=== PATIENT | female | born 1945 | race Caucasian/White ===

== ENCOUNTER → 2023-08-02 07:47 | Outpatient (REF) | payer MEDICARE, BC, SELFPAY ==
[2023-08-02 08:55] LABS: Urine Albumin Negative (Neg - Trace); Urine Bilirubin Negative (Negative); Urine Character Clear (Clear); Urine Color Yellow; Urine Glucose Negative (Negative); Urine Ketone Negative (Negative); Urine Leukocyte Negative (Negative); Urine Nitrite Negative (Negative); Urine Occult Blood Negative (Negative); Urine Urobilinogen Negative (Neg - 1+)
[2023-08-02 09:41] LABS: ALT (SGPT) 33 U/L (0-35); AST (SGOT) 34 U/L (14-36); Alkaline Phosphatase 57 U/L (38-126); Blood Urea Nitrogen 12 mg/dl (7-17); Calcium 9.7 mg/dl (8.4-10.2); Carbon Dioxide 23 mmol/L (22-30); Chloride 89 mmol/L (98-107); Glucose 123 mg/dl (70-99); HDL Cholesterol 109 mg/dl; LDL Cholesterol, Calculated 18 mg/dl; Potassium 3.6 mmol/L (3.5-5.1); Sodium 124 mmol/L (135-145); Total Cholesterol 155 mg/dl (50-199); Triglyceride 143 mg/dl (10-149); Very Low Density Lipoprotein 28 mg/dl (0-30); eGFR > 60.00
[2023-08-02 10:00] LABS: TSH 3.15 uIU/ml (0.47-4.68)
== END ==
LOC: HWLAB 07:47
PROVIDERS: ATTENDING PHYSICIAN Nurse Practitioner
DX: E87.8 Other disorders of electrolyte and fluid balance, not elsewhere classified (principal); E78.2 Mixed hyperlipidemia; E03.9 Hypothyroidism, unspecified; R73.03 Prediabetes
CPT/HCPCS: 36415; 80053; 80061; 81003; 83036; 84443

== ENCOUNTER 2023-08-09 11:55 | Emergency (ER) | payer MEDICARE, BC, SELFPAY ==
[2023-08-09 12:10] VITALS: BP 191/111
[2023-08-09 13:31] LABS: Urine Albumin Negative (Neg - Trace); Urine Bilirubin Negative (Negative); Urine Character Clear (Clear); Urine Color Yellow; Urine Glucose Negative (Negative); Urine Ketone Negative (Negative); Urine Leukocyte Negative (Negative); Urine Nitrite Negative (Negative); Urine Occult Blood Negative (Negative); Urine Urobilinogen Negative (Neg - 1+)
[2023-08-09 14:44] VITALS: BP 198/84; BMI 33.7
[2023-08-09 14:45] VITALS: BP 198/84
[2023-08-09 15:00] VITALS: BP 177/76
[2023-08-09 15:01] LABS: % Basophils 0.8 % (0-2); % Eosinophils 0.5 % (0-6); % Immature Granulocytes 0.3 % (0-0.5); % Monocytes 7.2 % (1.7-9.3); % Neutrophils 65.2 % (42.2-75.2); Absolute Basophils 0.1 10^3/uL (0-0.2); Absolute Monocytes 0.5 10^3/uL (0.1-0.6); Absolute Neutrophils 4.9 10^3/uL (1.4-6.5); Hematocrit 34.5 % (37.0-47.0); Hemoglobin 12.2 g/dL (12.0-16.0); Mean Corp Hgb Conc. 35.4 g/dL (33.0-37.0); Mean Corpuscular Volume 87.8 fL (81.0-99.0); Mean Platelet Volume 9.4 fL (7.4-10.4); Nucleated Red Blood Cells % 0 %; Platelet Count 273 10^3/uL (130-400); Red Blood Cell Count 3.93 10^6/uL (4.20-5.40); Red Cell Dist. Width 14.5 % (11.5-14.5); White Blood Cell Count 7.5 10^3/uL (4.8-10.8)
--- NOTE | 2023-08-09 15:03 | ED.GENMED ---
History of Present Illness
General
Chief Complaint: Urinary Symptoms
Source: patient
Exam Limitations: none
Time Seen by Provider: 08/09/23 13:53
Nursing documentation reviewed up to this point in time: agreed with
Travel History
Have you had any contact with someone who has COVID-19?: No
Do you have any symptoms of coronavirus? Fever > 100 degrees, chills, cough, shortness of breath, sore throat, loss of taste or smell, muscle aches, or headache?: No
History of Present Illness
History of Present Illness:
78-year-old female with past medical history of CHRISTIAN hypertension hyperlipidemia, GERD, hypothyroidism presenting to the emergency department today with concerns of feeling 'off'. Had a UTI 2 weeks ago and had an episode where she had significant
trouble with memory was seen at [facility] had a neurologic evaluation and labs. She was told that she had a UTI and some electrolyte derangements. She had a CT scan of her head at the time which was normal. She was then sent home.
Currently she has a mild headache no urinary symptoms feels very confused but denies any focal neurologic deficits.
Past History
Past History
ED Past Medical History: GERD, HTN and Hypothyroidism; Negative CAD or Cancer
ED Past Surgical History: Negative Cardiac
Social History
Tobacco: Non-smoker
Alcohol: None
Drug: None
Personal:
Living: with family
Employment: Retired
Family History
Family History: Other
Review of Systems
Review of Systems
Allergies reviewed?: Yes
All Other Systems: ROS reviewed and negative except as documented in HPI and ROS
Phy Exam
Physical Exam
Physical Exam:
GENERAL: Alert , in no apparent distress
EYE: pupils equal and reactive
NECK: Supple, no significant adenopathy.
ENT: o/p clr, mmm.
CARDIAC: Regular rate and rhythm .
LUNGS: Clear breath sounds bilaterally, no acute respiratory distress, no wheezes/rales/rhonchi
ABDOMEN: Soft, without focal tenderness, no r/g, no cvat
NEUROLOGICAL: Alert and oriented, no focal neuro deficits 5-5 upper and lower extremity strength normal sensation were palpated bilaterally normal finger-nose and [id number] no pronator drift
SKIN: Warm and dry, skin intact.
MUSCULOSKELETAL: No edema, well perfused.
PSYCH: Normal and appropriate interaction.
Course
Orders/Labs/Results
Orders:
Orders
08/09/23 13:09
UA Reflex to Culture [Urinalysis Reflex To Culture] Urgent
Date Specimen was Collected: 08/09/23
Time Specimen was Collected: 12:10
08/09/23 14:19
EKG [Electrocardiogram (*1)] Urgent
Reason for Study: Fatigue / Weakness
CT Head W/o Iv Contrast Urgent
Comment:
Reason For Exam: ams
EKG- Treatment ONCE
08/09/23 14:51
CBC/With Diff [Complete Blood Count/With Diff] Urgent
CMP [Comprehensive Metabolic Panel] Urgent
Magnesium Urgent
TSH Reflex To Free T4 Urgent
08/09/23 16:26
0.9% Sodium Chloride 500 ml [Nss] 500 ml IV BOLUS
Potassium Chloride Powder [Klor-Con] 20 meq PO NOW STA
Abnormal Lab Results
08/09/23
14:51
RBC 3.93 L 10^6/uL
(4.20-5.40)
Hct 34.5 L %
(37.0-47.0)
Sodium 129 L mmol/L
(135-145)
Potassium 3.1 L mmol/L
(3.5-5.1)
Chloride 93 L mmol/L
(98-107)
Creatinine 0.5 L mg/dL
(0.6-1.0)
Glucose 103 H mg/dl
(70-99)
ALT 37 H U/L
(0-35)
08/09/23 14:51
08/09/23 14:51
Vital Signs
Initial and Last Documented VS:
Initial Vital Signs
Temp Pulse Resp Pulse Ox
98.2 F 81 16 96
08/09/23 12:08 08/09/23 12:08 08/09/23 12:08 08/09/23 12:08
Last Documented Vital Signs
Temp Pulse Resp BP Pulse Ox
98.2 F 75 18 177/76 98
08/09/23 12:08 08/09/23 15:30 08/09/23 15:30 08/09/23 15:00 08/09/23 15:30
MDM/Problems Addressed
MDM/Problems Addressed:
78-year-old female presenting to the emergency department feeling 'off over the past few days. Had similar symptoms a few weeks ago when she was diagnosed with a UTI and had electrolyte issues. She was treated at [facility]. Upon arrival
here patient in no obvious distress claims he feels 'off and has had poor memory over the past few days. She claims that she frequently feels confused today. She is fully alert and oriented able to answer all orientation questions and is able to
speak fluently with me. No focal neurologic deficits on examination urinalysis normal. Patient fully alert and oriented throughout stay fluid with her thinking and speech. No neurologic abnormalities on exam CT scan was negative labs did show
slightly low potassium and sodium which potentially could be causing some degree of symptoms patient was given slight supplementation here and advised for close outpatient follow-up otherwise stable for discharge blood pressure was elevated during
stay she was advised to have this closely monitor at home and given increased medications as
*Critical Care Note
Total Time (30-74mins, 75-104mins- exclusive of procedures): Not Applicable
ED Attending Note
-
Portions of this chart may have been created with voice recognition software.� Occasional wrong word or��sound alike� substitutions may have occurred due to the inherent limitations of voice recognition software.
Discharge Plan
Departure
Patient Disposition: Home (Routine Discharge)
Date of Disposition: 08/09/23
Time of Disposition: 17:12
Patient with high blood pressure during this ER visit?: Yes
Condition: Good
Covid-19: Not Applicable
Discharge Problem:
Acute hyponatremia, Hypokalemia, High blood pressure
Instructions: BLOOD PRESSURE
Prescriptions:
New
potassium chloride 20 mEq tablet extended release
20 meq PO DAILY 7 Days Qty: 7 0RF
No Action
Lakia-D 24 Hour Tablet
1 tab PO DAILY
atorvastatin 20 MG tablet
20 mg PO HS
levothyroxine 75 MCG tablet
100 mcg PO DAILY
Centrum Silver Women 1 EACH tablet
1 ea PO DAILY
Tumersaid 1 EACH tablet
1 ea PO DAILY
oxybutynin chloride 15 mg Tablet Extended Release 24hr
15 mg PO DAILY
omeprazole 40 mg Capsule,Delayed Release(Dr/Ec)
40 mg PO DAILY
vitamin B complex Tablet
1 tab PO WEEKLY
Patient Comments:
1000 units weekly
azelastine 137 mcg (0.1 %) Aerosol,[place]
2 spray INTRANASAL BID
Vitamin D2 25,000 unit Capsule
50,000 unit PO WEEKLY
escitalopram oxalate [Lexapro] 10 mg Tablet
10 mg PO HS
valsartan-hydrochlorothiazide 320-12.5 mg Tablet
1 tab PO DAILY
Referrals:
Cornelius Meadows MD [Active] - Call in 1-3 days for appt
Nelia Lind CRNP [Family Provider] -
Activity Restrictions/Additional Instructions:
You came to the emergency department today with multiple concerns. Here you are found to have a continued low sodium and potassium level. Please take supplementation at home and follow close with a primary care doctor. Return to the emergency
department for any worsening, new or concerning symptoms.
Interventions
Interventions:
*Risk Screen - Suicide Last Done: 08/09/23 12:06
*General Assessment Last Done: 08/09/23 12:06
*Neglect/Abuse Screening Last Done: 08/09/23 12:06
ED- Fall Risk Assessment Last Done: 08/09/23 15:44
*ED COVID-19 Vaccine History Last Done: 08/09/23 14:44
ED-Female Genitourinary Assessment Last Done: 08/09/23 15:44
[2023-08-09 15:18] LABS: ALT (SGPT) 37 U/L (0-35); AST (SGOT) 35 U/L (14-36); Albumin 4.6 g/dl (3.5-5.0); Alkaline Phosphatase 55 U/L (38-126); Blood Urea Nitrogen 12 mg/dl (7-17); Calcium 9.9 mg/dl (8.4-10.2); Carbon Dioxide 27 mmol/L (22-30); Chloride 93 mmol/L (98-107); Estimated Creatinine Clearance 70 ml/min; Glucose 103 mg/dl (70-99); Magnesium 1.6 mg/dl (1.6-2.3); Potassium 3.1 mmol/L (3.5-5.1); Sodium 129 mmol/L (135-145); Total Bilirubin 0.9 mg/dl (0.2-1.3); Total Protein 7.3 g/dl (6.3-8.2); eGFR > 60.00
[2023-08-09 15:46] LABS: TSH Reflex To Free T4 3.89 uIU/ml (0.47-4.68)
[2023-08-09] MEDS: KLOR-CON 20 MEQ PO (16:46)
[2023-08-09] MEDS: NSS 500 IV (16:47)
== END 2023-08-09 18:03 | disposition home or self-care (01) ==
LOC: EMR 11:55
PROVIDERS: Physician Assistant; Student in an Organized Health Care Education/Training Program; EMERGENCY PHYSICIAN Emergency Medicine; FAMILY PHYSICIAN Nurse Practitioner
DX: E87.1 Hypo-osmolality and hyponatremia (principal); E87.6 Hypokalemia; I10 Essential (primary) hypertension; E78.5 Hyperlipidemia, unspecified; K21.9 Gastro-esophageal reflux disease without esophagitis; E03.9 Hypothyroidism, unspecified
CPT/HCPCS: 99285; 70450; 80053; 81003; 83735; 84443; 85025; 93005

== ENCOUNTER 2023-08-11 14:47 | Emergency (ER) | payer MEDICARE, BC, SELFPAY ==
[2023-08-11] VITALS (8 sets, daily range): BP systolic 173–220; BP diastolic 74–117; BMI 33.1
[2023-08-11 15:22] LABS: % Basophils 0.7 % (0-2); % Immature Granulocytes 0.3 % (0-0.5); % Lymphocytes 16.4 % (20.5-51.1); % Monocytes 6.7 % (1.7-9.3); % Neutrophils 73.9 % (42.2-75.2); Absolute Basophils 0.1 10^3/uL (0-0.2); Absolute Eosinophils 0.2 10^3/uL (0-0.7); Absolute Lymphocytes 1.6 10^3/uL (1.2-3.4); Absolute Monocytes 0.6 10^3/uL (0.1-0.6); Absolute Neutrophils 7.1 10^3/uL (1.4-6.5); Hematocrit 37.1 % (37.0-47.0); Hemoglobin 13.5 g/dL (12.0-16.0); Mean Corp Hgb Conc. 36.4 g/dL (33.0-37.0); Mean Corpuscular Hgb 31.5 pg (27.0-31.0); Mean Corpuscular Volume 86.7 fL (81.0-99.0); Mean Platelet Volume 9.5 fL (7.4-10.4); Nucleated Red Blood Cells % 0 %; Platelet Count 298 10^3/uL (130-400); Red Blood Cell Count 4.28 10^6/uL (4.20-5.40); Red Cell Dist. Width 14.2 % (11.5-14.5); White Blood Cell Count 9.6 10^3/uL (4.8-10.8)
[2023-08-11 15:41] LABS: ALT (SGPT) 38 U/L (0-35); AST (SGOT) 36 U/L (14-36); Albumin 4.8 g/dl (3.5-5.0); Alkaline Phosphatase 66 U/L (38-126); Blood Urea Nitrogen 11 mg/dl (7-17); Calcium 10.2 mg/dl (8.4-10.2); Carbon Dioxide 22 mmol/L (22-30); Chloride 97 mmol/L (98-107); Glucose 117 mg/dl (70-99); Potassium 3.4 mmol/L (3.5-5.1); Sodium 129 mmol/L (135-145); Total Protein 7.8 g/dl (6.3-8.2); eGFR > 60.00
[2023-08-11 15:46] LABS: Troponin I < 0.012 ng/ml
--- NOTE | 2023-08-11 19:05 | ED.GENMED ---
History of Present Illness
General
Chief Complaint: Blood Pressure Problem
Source: patient
Exam Limitations: none
Time Seen by Provider: 08/11/23 18:35
Travel History
Have you had any contact with someone who has COVID-19?: No
Do you have any symptoms of coronavirus? Fever > 100 degrees, chills, cough, shortness of breath, sore throat, loss of taste or smell, muscle aches, or headache?: No
History of Present Illness
History of Present Illness:
This is a 78 year old female that comes in with c/o feeling like things moving. States that this morning she got up and took her medication. States that she got dressed and she then felt like the room was moving but she was not dizzy. States that
she would look for thinks and couldn't find them. States that she was watching TV and she felt like the TV was moving forward to her and then back again. States that when she got ready to come here it went away. States that she was here 2-3 days ago
with the exact same thing. States that she had CT of her head at that time which was normal. States that she did not take her evening dose of her Hydralazine and she was to start Valsartan but she has not take this either. States that she does have
a headache and had some diarrhea today. Denies any fever, chills, chest pain, SOB, abd pain, nausea, vomiting, dizziness, urinary burning.
Past History
Past History
ED Past Medical History: GERD, HTN, Hypercholesterolemia, Hypothyroidism and Other (Migraines, Sleep apnea uses CPAP); Negative CAD or Cancer
ED Past Surgical History: Gynecological (Tubal, ) and Orthopedic (FInger resection, Carpal tunnel); Negative Cardiac
Social History
Tobacco: Non-smoker
Alcohol: None
Drug: None
Personal:
Living: with family
Employment: Retired
Family History
Family History: Other
Review of Systems
Review of Systems
All Other Systems: ROS reviewed and negative except as documented in HPI and ROS
Constitutional: Reports no symptoms; Denies fever or chills
EENT: Reports no symptoms
Respiratory: Reports no symptoms; Denies cough or trouble breathing
Cardiac: Reports no symptoms; Denies chest pain
ABD/GI: Reports diarrhea; Denies abdominal pain, nausea or vomiting
: Reports no symptoms; Denies dysuria, frequency or urgency
Musculoskeletal: Reports no symptoms
Skin: Reports no symptoms
Neurological: Reports headache; Denies dizzy
Psychiatric: Reports no symptoms
Phy Exam
General Physical Exam
General Presentation: well appearing and no apparent distress
General age: appears stated age
General Skin: warm and dry
General Habitus: elderly
General Mental: alert
General Hydration: dry mucous membranes
ENT Exam
ENT Exam: TM's normal, pharynx normal and neck supple
Eye Exam
Eye Exam: EOMI
Cardiovascular Exam
Cardiovascular Exam: regular rate/rhythm, no edema, no murmur and normal peripheral pulses
Pulmonary Exam
Pulmonary Exam: lungs clear, no respiratory distress, no rales, chest non tender, no crackles, no rhonchi, no wheezing and no cough
Gastrointestinal Exam
Gastrointestinal Exam: normal bowel sounds, non tender, soft, no organomegaly, no pulsatile mass and non distended
Musculoskeletal Exam
Musculoskeletal Exam: full ROM and no edema
Skin Exam
Skin Exam: normal color, warm/dry, no rash and no petechia
Psychiatric Exam
Psychiatric Exam: normal mood/affect
Course
Orders/Labs/Results
Orders:
Orders
08/11/23 15:05
Electrocardiogram (*1) Urgent
Reason for Study: Chest Pain
EKG- Treatment ONCE
08/11/23 15:15
Complete Blood Count/With Diff Urgent
Comprehensive Metabolic Panel Urgent
Troponin I Urgent
08/11/23 19:03
HydrALAZINE [Apresoline] 5 mg IV NOW STA
08/11/23 19:08
0.9% Sodium Chloride 500 ml [Nss] 500 ml IV BOLUS
Potassium Chloride Powder [Klor-Con] 20 meq PO NOW STA
08/11/23 19:11
Acetaminophen [Tylenol] 1,000 mg PO NOW STA
08/11/23 19:27
Urinalysis Reflex To Culture Urgent
Date Specimen was Collected: 08/11/23
Time Specimen was Collected: 19:11
Abnormal Lab Results
08/11/23 08/11/23
15:15 19:27
MCH 31.5 H pg
(27.0-31.0)
Absolute Neuts (auto) 7.1 H 10^3/uL
(1.4-6.5)
Lymphocytes % 16.4 L %
(20.5-51.1)
Sodium 129 L mmol/L
(135-145)
Potassium 3.4 L mmol/L
(3.5-5.1)
Chloride 97 L mmol/L
(98-107)
Glucose 117 H mg/dl
(70-99)
ALT 38 H U/L
(0-35)
Urine Ketones Trace A
(Negative)
08/11/23 15:15
08/11/23 15:15
Sodium slightly low. Potassium very slightly low. Chloride very slightly low. Glucose nonfasting. ALT slightly elevated. Troponin <0.012
Urine negative for infection.
Vital Signs
Initial and Last Documented VS:
Initial Vital Signs
Temp Pulse Resp Pulse Ox
97.6 F 92 16 98
08/11/23 15:01 08/11/23 15:01 08/11/23 15:01 08/11/23 15:01
Last Documented Vital Signs
Temp Pulse Resp BP Pulse Ox
97.6 F 74 18 191/88 98
08/11/23 15:01 08/11/23 19:24 08/11/23 18:54 08/11/23 19:24 08/11/23 18:54
MDM/Problems Addressed
Differential Diagnosis Includes:
Hypertension, Dementia, dehydration,
MDM/Problems Addressed:
This is a 78 year old female that comes in with c/o not feeling dizzy but like things are moving. States that she was here 2 days ago with the same thing and had a CT scan. States that she did not take her evening medication and she did not start
the Valsartan as prescribed.
Will check labs, Urine, give IV fluids and given her Hydralazine 5mg to help with hypertension.
Back into see patient. Patient states that she feels fine. BP at this time is 175/74. Explained to patient that she need to take the Valsartan as prescribed along with her other medications as directed. This will help keep her BP down and may stop
this non-dizzy feeling. Patient has an appointment with the PCP on Wednesday next week. Patient to return with any concerns.
Chronic conditions affecting care: HTN
Acute Exacerbation and/or Progression of Chronic Illness: HTN
*Pulse Oximetry
Patient hypoxic: no
*EKG
Interpreted by ED Provider?: Yes
Heart Rate: 81
Rate: normal
Rhythm: sinus
[place]: normal axis
Interval: normal interval
QRS Pattern: normal QRS
Ischemia: no ischemia
*Ultrasonographer Interpretation
Rate: normal
Heart Rate: 78
Rhythm: sinus
*Critical Care Note
Total Time (30-74mins, 75-104mins- exclusive of procedures): Not Applicable
ED Attending Note
-
Portions of this chart may have been created with voice recognition software.� Occasional wrong word or��sound alike� substitutions may have occurred due to the inherent limitations of voice recognition software.
Discharge Plan
Departure
Patient Disposition: Home (Routine Discharge)
Date of Disposition: 08/11/23
Time of Disposition: 19:56
Patient with high blood pressure during this ER visit?: Yes
Condition: Good
Covid-19: Not Applicable
Discharge Problem:
Hypertension
Instructions: High Blood Pressure (DC), BLOOD PRESSURE
Prescriptions:
No Action
Lakia-D 24 Hour Tablet
1 tab PO DAILY
atorvastatin 20 MG tablet
20 mg PO HS
levothyroxine 75 MCG tablet
100 mcg PO DAILY
Centrum Silver Women 1 EACH tablet
1 ea PO DAILY
Tumersaid 1 EACH tablet
1 ea PO DAILY
oxybutynin chloride 15 mg Tablet Extended Release 24hr
15 mg PO DAILY
omeprazole 40 mg Capsule,Delayed Release(Dr/Ec)
40 mg PO DAILY
vitamin B complex Tablet
1 tab PO WEEKLY
Patient Comments:
1000 units weekly
azelastine 137 mcg (0.1 %) Aerosol,[place]
2 spray INTRANASAL BID
Vitamin D2 25,000 unit Capsule
50,000 unit PO WEEKLY
escitalopram oxalate [Lexapro] 10 mg Tablet
10 mg PO HS
valsartan-hydrochlorothiazide 320-12.5 mg Tablet
1 tab PO DAILY
potassium chloride 20 mEq tablet extended release
20 meq PO DAILY 7 Days Qty: 7 0RF
Referrals:
Nelia Lind CRNP [Family Provider] - 08/18/23
Activity Restrictions/Additional Instructions:
As discussed, your blood work shows that our sodium is a little low. Please limit your water intake and no more then 6-8oz glasses daily. Your BP is elevated and you need to take your Valsartan as prescribed along with your other medications as
directed. Follow up with the family doctor as scheduled. IF YOU HAVE ANY OTHER CONCERNS PLEASE RETURN TO THE EMERGENCY ROOM.
Interventions
Interventions:
*Risk Screen - Suicide Last Done: 08/11/23 18:41
*General Assessment Last Done: 08/11/23 18:41
*Neglect/Abuse Screening Last Done: 08/11/23 18:41
*ED COVID-19 Vaccine History Last Done: 08/11/23 18:41
ED- Cardiac Assessment Last Done: 08/11/23 18:49
ED- Neurological Assessment Last Done: 08/11/23 18:49
ED- Pulmonary Assessment Last Done: 08/11/23 18:49
[2023-08-11] MEDS: NSS 500 IV (19:23)
[2023-08-11] MEDS: APRESOLINE 5 MG IV (19:24)
[2023-08-11] MEDS: TYLENOL 1000 MG PO (19:24)
[2023-08-11] MEDS: KLOR-CON 20 MEQ PO (19:25)
[2023-08-11 19:38] LABS: Urine Albumin Negative (Neg - Trace); Urine Bilirubin Negative (Negative); Urine Character Clear (Clear); Urine Color Yellow; Urine Glucose Negative (Negative); Urine Ketone Trace (Negative); Urine Leukocyte Negative (Negative); Urine Nitrite Negative (Negative); Urine Occult Blood Negative (Negative); Urine Specific Gravity 1.005 (<1.030); Urine Urobilinogen Negative (Neg - 1+)
== END 2023-08-11 20:25 | disposition home or self-care (01) ==
LOC: EMR 14:47
PROVIDERS: Clinical Nurse Specialist Family Health; Emergency Medicine; EMERGENCY PHYSICIAN Student in an Organized Health Care Education/Training Program; FAMILY PHYSICIAN Nurse Practitioner
DX: I10 Essential (primary) hypertension (principal)
CPT/HCPCS: 99284; 96374; 96361; 80053; 81003; 84484; 85025; 93005

== ENCOUNTER → 2023-08-17 10:16 | Outpatient (REF) | payer MEDICARE, BC, SELFPAY ==
[2023-08-17 12:15] LABS: Sodium 133 mmol/L (135-145)
[2023-08-17 12:24] LABS: Potassium 3.6 mmol/L (3.5-5.1)
== END ==
LOC: HWLAB 10:16
PROVIDERS: ATTENDING PHYSICIAN Nurse Practitioner
DX: E87.1 Hypo-osmolality and hyponatremia (principal); E87.6 Hypokalemia
CPT/HCPCS: 36415; 84132; 84295

== ENCOUNTER 2023-08-19 17:08 | Inpatient (IN) | payer MEDICARE, BC, SELFPAY ==
[2023-08-19] VITALS (7 sets, daily range): BP systolic 150–202; BP diastolic 79–100; BMI 32.3; BMI 30.9
[2023-08-19 14:46] LABS: % Basophils 0.4 % (0-2); % Eosinophils 3.7 % (0-6); % Immature Granulocytes 0.5 % (0-0.5); % Lymphocytes 8.7 % (20.5-51.1); % Monocytes 6.6 % (1.7-9.3); % Neutrophils 80.1 % (42.2-75.2); Absolute Eosinophils 0.3 10^3/uL (0-0.7); Absolute Immature Granulocytes 0.1 10^3/uL (0-0.05); Absolute Lymphocytes 0.8 10^3/uL (1.2-3.4); Absolute Monocytes 0.6 10^3/uL (0.1-0.6); Absolute Neutrophils 7.4 10^3/uL (1.4-6.5); Hematocrit 34.1 % (37.0-47.0); Hemoglobin 12.4 g/dL (12.0-16.0); Mean Corp Hgb Conc. 36.4 g/dL (33.0-37.0); Mean Corpuscular Hgb 31.2 pg (27.0-31.0); Mean Corpuscular Volume 85.9 fL (81.0-99.0); Mean Platelet Volume 9.8 fL (7.4-10.4); Nucleated Red Blood Cells % 0 %; Platelet Count 297 10^3/uL (130-400); Red Blood Cell Count 3.97 10^6/uL (4.20-5.40); Red Cell Dist. Width 14.4 % (11.5-14.5); White Blood Cell Count 9.2 10^3/uL (4.8-10.8)
[2023-08-19 14:51] LABS: Urine Albumin Negative (Neg - Trace); Urine Bilirubin Negative (Negative); Urine Character Clear (Clear); Urine Color Yellow; Urine Glucose Negative (Negative); Urine Ketone 1+ (Negative); Urine Leukocyte Negative (Negative); Urine Nitrite Negative (Negative); Urine Occult Blood Negative (Negative); Urine Urobilinogen Negative (Neg - 1+)
[2023-08-19 14:58] LABS: ALT (SGPT) 183 U/L (0-35); AST (SGOT) 91 U/L (14-36); Albumin 4.5 g/dl (3.5-5.0); Alkaline Phosphatase 201 U/L (38-126); Blood Urea Nitrogen 11 mg/dl (7-17); Calcium 9.7 mg/dl (8.4-10.2); Carbon Dioxide 20 mmol/L (22-30); Chloride 97 mmol/L (98-107); Estimated Creatinine Clearance 68 ml/min; Glucose 108 mg/dl (70-99); Potassium 3.8 mmol/L (3.5-5.1); Sodium 126 mmol/L (135-145); Total Bilirubin 1.8 mg/dl (0.2-1.3); Total Protein 7.6 g/dl (6.3-8.2); eGFR > 60.00
--- NOTE | 2023-08-19 15:57 | ED.GENMED ---
History of Present Illness
General
Chief Complaint: Change in Mental Status
Source: patient and spouse
Time Seen by Provider: 08/19/23 15:19
Nursing documentation reviewed up to this point in time: agreed with
Travel History
Have you had any contact with someone who has COVID-19?: No
Do you have any symptoms of coronavirus? Fever > 100 degrees, chills, cough, shortness of breath, sore throat, loss of taste or smell, muscle aches, or headache?: No
History of Present Illness
History of Present Illness:
Patient is a 78-year-old female who presents to the ER for evaluation. at bedside reports patient has been very confused. This morning she told him that she wanted to go to the hospital however she was not making sense. reports
this is not new. He reports she is very forgetful cannot remember things and has a very confused conversation at times. She was hospitalized as documented in [place] several weeks ago for similar symptoms and reports had electrolyte
issues and UTI at that time
She was seen here in the ER August 10 for hypertension and August 08 for 'feeling off.' On visit August 08 patient was found to have hyponatremia and hypokalemia.
Patient is awake alert she does feel that she is aware that she is confused at times. She has no physical complaints.
Past History
Past History
ED Past Medical History: GERD, HTN, Hypercholesterolemia, Hypothyroidism and Other (Migraines, Sleep apnea uses CPAP); Negative CAD or Cancer
ED Past Surgical History: Gynecological (Tubal, ) and Orthopedic (FInger resection, Carpal tunnel); Negative Cardiac
Social History
Tobacco: Non-smoker
Alcohol: None
Drug: None
Personal:
Living: with family
Employment: Retired
Family History
Family History: Other
Review of Systems
Review of Systems
Allergies reviewed?: Yes
All Other Systems: ROS reviewed and negative except as documented in HPI and ROS
Constitutional: Denies fever, fatigue or chills
EENT: Reports no symptoms
Respiratory: Reports no symptoms
Cardiac: Reports no symptoms
ABD/GI: Reports no symptoms
: Reports no symptoms
Musculoskeletal: Reports no symptoms
Skin: Reports no symptoms
Neurological: Reports other (intermittently confused )
Phy Exam
General Physical Exam
General Presentation: no apparent distress
General age: appears stated age
General Skin: warm and dry
General Habitus: normal
General Mental: alert
General Hydration: appears well hydrated
Cardiovascular Exam
Cardiovascular Exam: regular rate/rhythm, no murmur and normal peripheral pulses
Pulmonary Exam
Pulmonary Exam: lungs clear and no respiratory distress
Neurological Exam
Neurological Exam: alert and oriented x3
Musculoskeletal Exam
Musculoskeletal Exam: full ROM
Skin Exam
Skin Exam: normal color and warm/dry
Psychiatric Exam
Psychiatric Exam: normal mood/affect
Course
Orders/Labs/Results
Orders:
Orders
08/19/23 14:31
Complete Blood Count/With Diff Urgent
Comprehensive Metabolic Panel Urgent
Urinalysis Reflex To Culture Urgent
Date Specimen was Collected: 08/19/23
Time Specimen was Collected: 14:18
Abnormal Lab Results
08/19/23
14:31
RBC 3.97 L 10^6/uL
(4.20-5.40)
Hct 34.1 L %
(37.0-47.0)
MCH 31.2 H pg
(27.0-31.0)
Abs Immat Gran (auto) 0.1 H 10^3/uL
(0-0.05)
Absolute Neuts (auto) 7.4 H 10^3/uL
(1.4-6.5)
Absolute Lymphs (auto) 0.8 L 10^3/uL
(1.2-3.4)
Neutrophils % 80.1 H %
(42.2-75.2)
Lymphocytes % 8.7 L %
(20.5-51.1)
Sodium 126 L mmol/L
(135-145)
Chloride 97 L mmol/L
(98-107)
Carbon Dioxide 20 L mmol/L
(22-30)
Creatinine 0.5 L mg/dL
(0.6-1.0)
Glucose 108 H mg/dl
(70-99)
Total Bilirubin 1.8 H mg/dl
(0.2-1.3)
AST 91 H U/L
(14-36)
ALT 183 H U/L
(0-35)
Alkaline Phosphatase 201 H U/L
(38-126)
Urine Ketones 1+ A
(Negative)
08/19/23 14:31
08/19/23 14:31
Vital Signs
Initial and Last Documented VS:
Initial Vital Signs
Temp Pulse Resp BP Pulse Ox
98.1 F 85 16 190/100 98
08/19/23 14:14 08/19/23 14:14 08/19/23 14:14 08/19/23 14:14 08/19/23 14:14
Last Documented Vital Signs
Temp Pulse Resp BP Pulse Ox
98.1 F 78 16 202/97 98
08/19/23 14:14 08/19/23 16:03 08/19/23 14:14 08/19/23 16:00 08/19/23 15:54
MDM/Problems Addressed
Differential Diagnosis Includes:
Not limited to electrolyte abnormality, infection, anemia, dementia, UTI
MDM/Problems Addressed:
Patient is a 78-year-old that was brought to the ER for evaluation of intermittent confusion. Has reports off-and-on for the past several weeks patient has been confused. She was hospice on [facility] for confusion and was also seen here in
the ER. She presents awake alert no acute distress reports patient is intermittently confused and she tells me that she is aware of feeling confused and feeling off.
No recent illness fever chills she is afebrile with a normal white count stable hemoglobin. Patient was found again to be hyponatremic here in the ER with a sodium of 126. Patient has had previous low sodiums in the past. Patient now also has
minimally elevated LFTs which are new. abd soft non tender . Negative urinalysis. CAT scan was not repeated as patient just had a CAT scan 3/ for same s/s.
Will require admission for further workup of intermittent confusion, treatment of hyponatremia and further eval of elevated lfts .
Chronic conditions affecting care:
Hypertension
*Critical Care Note
Total Time (30-74mins, 75-104mins- exclusive of procedures): Not Applicable
ED Attending Note
-
Portions of this chart may have been created with voice recognition software.� Occasional wrong word or��sound alike� substitutions may have occurred due to the inherent limitations of voice recognition software.
Discharge Plan
Departure
Patient Disposition: Admit
Date of Disposition: 08/19/23
Time of Disposition: 16:17
Admit to: Telemetry
Admit to doctor: hospitalist
Presentation/result/management discussed w/ accepting MD/DO: Hospitalist
Patient with high blood pressure during this ER visit?: Yes
Condition: Fair
Covid-19: Not Applicable
Discharge Problem:
Altered mental status, Acute hyponatremia, Elevated LFTs
Prescriptions:
No Action
Lakia-D 24 Hour Tablet
1 tab PO DAILY
atorvastatin 20 MG tablet
20 mg PO HS
levothyroxine 75 MCG tablet
100 mcg PO DAILY
Centrum Silver Women 1 EACH tablet
1 ea PO DAILY
Tumersaid 1 EACH tablet
1 ea PO DAILY
oxybutynin chloride 15 mg Tablet Extended Release 24hr
15 mg PO DAILY
omeprazole 40 mg Capsule,Delayed Release(Dr/Ec)
40 mg PO DAILY
vitamin B complex Tablet
1 tab PO WEEKLY
Patient Comments:
1000 units weekly
azelastine 137 mcg (0.1 %) Aerosol,[place]
2 spray INTRANASAL BID
Vitamin D2 25,000 unit Capsule
50,000 unit PO WEEKLY
escitalopram oxalate [Lexapro] 10 mg Tablet
10 mg PO HS
valsartan-hydrochlorothiazide 320-12.5 mg Tablet
1 tab PO DAILY
potassium chloride 20 mEq tablet extended release
20 meq PO DAILY 7 Days Qty: 7 0RF
Referrals:
Rocío Guevara, [Family Provider] -
Interventions
Interventions:
*Risk Screen - Suicide Last Done: 08/19/23 16:07
*General Assessment Last Done: 08/19/23 14:55
*Neglect/Abuse Screening Last Done: 08/19/23 16:07
ED- Fall Risk Assessment Last Done: 08/19/23 15:54
*ED COVID-19 Vaccine History Last Done: 08/19/23 14:14
ED- Pulmonary Assessment Last Done: 08/19/23 15:54
ED- Neurological Assessment Last Done: 08/19/23 15:54
ED- Cardiac Assessment Last Done: 08/19/23 15:54
ED Swallowing Screen Last Done: 08/19/23 15:54
--- NOTE | 2023-08-19 16:48 | HPS.HSE ---
Family Physician
-
Family Physician: Rocío Guevara
Chief Complaint
-
confusion, intermittent
History of Present Illness
78 yo F with PMHx of hypothyroidism, HTN, HLD, anxiety came with 2 weeks of intermittent confusion and malaise. No other symptoms noted. Patient is AAOx3 and well aware about surroundings, maintaining good conversation that does not raising
suspicion for dementia. No meningeal signs, BP poorly controlled. CT head done on August 08 (when patient came with the similar symptoms) is unremarkable for acute disease
Medical History
Past Medical History
Past Medical History: Reports Other
Additional Past Medical History:
See HPI
Past Surgical History: Reports None
Social History
Tobacco: Non-smoker
Alcohol: None
Drug: None
Family History
Family History: Not pertinent
Allergies / Home Medications
Allergies reflects when Allergies were last updated in [facility].
Home Medications with original date entered in [facility]
Allergy/Medication List:
Allergies
Allergy/AdvReac Type Severity Reaction Status Date / Time
codeine [Codeine] Allergy Nausea Verified 08/19/23 14:17
Penicillins Allergy Hives Verified 08/19/23 14:17
Home Medications
cetirizine 10 mg tablet (Zyrtec) 10 mg PO DAILY 01/07/09
atorvastatin 20 mg tablet 20 mg PO DAILY 03/11/17
itsongmj-dmfg-lmry 8 mg-folic 400 mcg-K 50 mcg-lutein 300 mcg tablet (Centrum Silver Women) 1 ea PO DAILY 03/11/17
omeprazole 40 mg capsule,delayed release 40 mg PO DAILY 12/28/21
oxybutynin chloride 15 mg tablet,extended release 24 hr 15 mg PO DAILY 12/28/21
potassium chloride 20 mEq tablet,extended release 20 meq PO DAILY 7 days #7 tabs 08/09/23
cholecalciferol (vitamin D3) 25 mcg (1,000 unit) tablet (Vitamin D3) 50 mcg PO DAILY 08/19/23
coenzyme Q10 300 mg capsule (Co Q-10) 300 mg PO DAILY 08/19/23
escitalopram oxalate 5 mg tablet 5 mg PO DAILY 08/19/23
hydralazine 25 mg tablet 25 mg PO BID 08/19/23
levothyroxine 88 mcg tablet 88 mcg PO DAILY 08/19/23
turmeric root extract 500 mg tablet 1,000 mg PO DAILY 08/19/23
valsartan 320 mg tablet 320 mg PO HS 08/19/23
Review of Systems
-
A 12 point ROS was completed and negative except as noted: Yes
Constitutional: Reports See HPI
Physical Exam
Vital Signs
Vital Signs
Temp Pulse Resp BP Pulse Ox
98.1 F 78 16 202/97 98
08/19/23 14:14 08/19/23 16:03 08/19/23 14:14 08/19/23 16:00 08/19/23 15:54
Physical Exam
General: Well Developed, Well Nourished and No Apparent Distress
HEENT: NormoCephalic, Anicteric and Moist mucous membranes
Respiratory: Clear; No Rales or Rhonchi
Cardiac: S1/S2 and Regular Rhythm
GI: Soft, Non Tender and Non Distended
Genito-urinary: Clear Urine
Musculoskeletal: No Clubbing, No Cyanosis and No Edema
Skin: Warm
Neuro: Awake, Alert, Oriented and AO x 3
Hematologic/Lymphatic: No Lymphadenopathy
Psych: Calm
Laboratory Results
-
08/19/23 14:31
08/19/23 14:31
Laboratory Results
Total Bilirubin 1.8 mg/dl (0.2-1.3) H 08/19/23 14:31
AST 91 U/L (14-36) H 08/19/23 14:31
ALT 183 U/L (0-35) H 08/19/23 14:31
Alkaline Phosphatase 201 U/L (38-126) H 08/19/23 14:31
Impression/Plan
-
A/P:
#Intermittent confusion, unclear cause, cannot r/o PRES with malaise
#Poorly controlled essential HTN
MRI brain (has Hx of small meningioma)
check Lyme titer
Neurology consult
cont BP meds, use IV hydralazoine PRN, avouid BP drop by more then 25% over the next 24h
Check AM cortisol
UA pending
check XR chest
Bcx
Telemetry for at least 24h
Check B12, Ammonia
#Hyponatremia
recently started Lexapro (1 week) - hold lexapro
Urine osm
Limit fluid intake to 1500ml
Nephro consult
#Transaminitis with elevatd bili
No RUQ tenderness
check hepatitis profile
hold statin
US RUQ ordered
follow LFT
avoid tylenol
#Anxiety
#HLD
#Hypothyroidism
Check TSH
hold statin
cont Synthroid
DVT ppx lovenox
Full code
This admission required high level of medical decision making due to unclear symptoms and complicated review of PMHx
--- NOTE | 2023-08-19 20:05 | PTCARENOTE ---
Pt transferred from ED. Pt AAOX3, able to make needs known, VSS. Pt oriented to unit, call pratt within reach.
[2023-08-19] MEDS: APRESOLINE 25 MG PO (20:28)
[2023-08-19] MEDS: LOVENOX 40 MG SC (20:28)
[2023-08-19] MEDS: DIOVAN 320 MG PO (20:29)
[2023-08-20] VITALS (7 sets, daily range): BP systolic 141–169; BP diastolic 80–112; PULSE 83; O2SAT 97
[2023-08-20 02:25] LABS: Hepatitis B Surface Antigen Negative (Negative)
[2023-08-20 02:43] LABS: Hepatitis B Core Ab, Total Negative (Negative); Hepatitis B Surface Antibody Positive; Hepatitis C Antibody Negative (Negative)
[2023-08-20 04:07] LABS: Hepatitis A Antibody, Total Negative (Negative)
[2023-08-20] MEDS: SYNTHROID 88 MCG PO (05:33)
[2023-08-20 05:42] LABS: % Basophils 0.7 % (0-2); % Eosinophils 5.7 % (0-6); % Immature Granulocytes 0.6 % (0-0.5); % Lymphocytes 9.8 % (20.5-51.1); % Monocytes 6.4 % (1.7-9.3); % Neutrophils 76.8 % (42.2-75.2); Absolute Basophils 0.1 10^3/uL (0-0.2); Absolute Eosinophils 0.5 10^3/uL (0-0.7); Absolute Immature Granulocytes 0.1 10^3/uL (0-0.05); Absolute Lymphocytes 0.8 10^3/uL (1.2-3.4); Absolute Monocytes 0.5 10^3/uL (0.1-0.6); Absolute Neutrophils 6.5 10^3/uL (1.4-6.5); Hematocrit 32.6 % (37.0-47.0); Hemoglobin 11.8 g/dL (12.0-16.0); Mean Corp Hgb Conc. 36.2 g/dL (33.0-37.0); Mean Corpuscular Hgb 31.2 pg (27.0-31.0); Mean Corpuscular Volume 86.2 fL (81.0-99.0); Nucleated Red Blood Cells % 0 %; Platelet Count 233 10^3/uL (130-400); Red Blood Cell Count 3.78 10^6/uL (4.20-5.40); Red Cell Dist. Width 14.3 % (11.5-14.5); White Blood Cell Count 8.5 10^3/uL (4.8-10.8)
[2023-08-20 06:07] LABS: Ammonia 13 umol/L (9-30)
[2023-08-20 06:18] LABS: ALT (SGPT) 148 U/L (0-35); AST (SGOT) 65 U/L (14-36); Albumin 3.8 g/dl (3.5-5.0); Alkaline Phosphatase 163 U/L (38-126); Direct Bilirubin 0.2 mg/dl (0.0-0.4); Total Bilirubin 1.1 mg/dl (0.2-1.3); Total Protein 6.5 g/dl (6.3-8.2)
[2023-08-20 06:39] LABS: TSH 4.45 uIU/ml (0.47-4.68)
[2023-08-20 06:58] LABS: Vitamin B12 817 pg/ml (239-931)
[2023-08-20 07:55] LABS: Osmolality Urine 260 mOsm/kg (300-900)
[2023-08-20 07:57] LABS: Urine Sodium 54 mmol/L (30-90)
--- NOTE | 2023-08-20 08:25 | W.PN.HOSP.TC ---
Today's Communication/Plan
-
Monitor sodium. MRI of the brain. PT OT eval
Assessment / Plan
Assessment / Plan
Physical Exam
General: Well Developed, Well Nourished and No Apparent Distress
HEENT: NormoCephalic, Anicteric and Moist mucous membranes
Respiratory: Clear; No Rales or Rhonchi
Cardiac: S1/S2 and Regular Rhythm
GI: Soft, Non Tender and Non Distended
Genito-urinary: Clear Urine
Musculoskeletal: No Clubbing, No Cyanosis and No Edema
Skin: Warm
Neuro: Awake, Alert, Oriented and AO x 3
Hematologic/Lymphatic: No Lymphadenopathy
Psych: Calm
A/P:
#Intermittent confusion, unclear cause, cannot r/o PRES with malaise
#Poorly controlled essential HTN
Await nephrology evaluation to see if she requires further workup for secondary causes of hypertension
MRI brain (has Hx of small meningioma)
No neurological deficits clinically but await for MRI as above.
check Lyme titer--> pending
Neurology consult--> follow-up recommendations
cont BP meds, use IV hydralazoine PRN, avouid BP drop by more then 25% over the next 24h
Check AM cortisol--> cortisol normal 35
UA pending--> urinalysis no evidence of infection
check XR chest--> no acute chest
Bcx--> no growth but follow-up
Telemetry for at least 24h
Check B12, Ammonia--> B12 normal 817,Ammonia normal 13
#Hyponatremia
recently started Lexapro (1 week) - hold lexapro
Urine osm--> 260
Urine sodium 54
Limit fluid intake to 1500ml
Nephro consult
#Transaminitis with elevatd bili
No RUQ tenderness
checked hepatitis profile
hold statin
US RUQ ordered and results noticed with no acute abdominal process identified and mild fatty infiltration.
follow LFT
avoid tylenol
#Anxiety
#HLD
#Hypothyroidism
Check TSH--> TSH normal 4.45
hold statin
cont Synthroid
DVT ppx lovenox
Full code
Total time spent on today's encounter was 52 minutes which included time spent in counseling the patient/family regarding diagnosis and treatment plan as listed above, goals of care, and symptom management. Case was discussed with nursing staff,
specialists, and care coordinators/case management. All labs and imaging personally reviewed by me. Remainder the time spent in detailed review of previous records, lab data, imaging, and other medical provider documentation.
Anticipated Discharge: 24 - 48 hours
Subjective/Interval History
-
Date of Service: August 20, 2023
Patient alert but recognizes that she has been having memory issues. She complains of diarrhea.
Objective Data
-
Labs:
Laboratory Results
08/20/23
05:32
WBC 8.5
Hgb 11.8 L
Hct 32.6 L
Plt Count 233 D
Total Bilirubin 1.1
AST 65 H
ALT 148 H
Alkaline Phosphatase 163 H
Vital Signs:
Vital Signs
Temp Pulse Resp BP Pulse Ox
98.9 F 97 18 141/80 97
08/20/23 07:30 08/20/23 07:30 08/20/23 07:30 08/20/23 07:30 08/20/23 07:30
I&O
08/19/23 08/20/23 08/21/23
06:59 06:59 06:59
Intake Total 240 / 240
Balance 240 / 240
Review of Systems
-
All other systems: Reviewed and negative
--- NOTE | 2023-08-20 08:39 | CON.NEURO4 ---
Addendum entered and electronically signed by Ramirez Verde MD 08/20/23 11:04:
Studies reviewed.
I have personally examined the patient. I reviewed and agree with the DENTAL INSTRUMENT MAKER's Note.
My addenda:
Awake, alert, interactive. No acute distress.
Speech intact.
Follows 2-step requests w/o difficulty. No tremor.
Extra-ocular movements grossly intact.
Facial movements full and symmetric. Hearing intact to normal conversational volume.
Normal UE movements bilaterally.
Neck: full ROM.
Chest: no dyspnea
Heart: no JVD
Ext: (-) Clubbing, (-) Cyanosis, (-) Edema
IMPRESSIONS/RECOMMENDATIONS:
Ongoing cognitive issues with associated hyponatremia and self-reported diarrhea
Most likely etiology is toxic metabolic encephalopathy. Alternatively, there is a distant possibility of a paraneoplastic abnormality producing symptomatology.
Check MRI of brain when possible
Check blood work for potential metabolic abnormalities
Eventual neuropsychological evaluations if the patient does not improve after metabolic issues have been evaluated
D/W patient
All questions answered.
Will continue to follow as outpatient.
Original Note:
Documented by User: Elyssa Allison NP 08/20/23 10:30
Consultation - Neurology 4
-
CONSULTING PHYSICIAN: Ramirez Verde MD
REFERRING PHYSICIAN: Hospitalists/Dr. Alva
DICTATED BY: HECTOR Barbosa
DATE/TIME OF REQUEST: 08/19/23
DATE/TIME OF CONSULTATION: 08/20/23
Reason for Consultation: Confusion
History of Present Illness:
This is a 78-year-old right-handed female who has presented to the hospital with report of intermittent confusion for the past month. Patient was previously evaluated by our Neurology service in 2008 and again in 2017. In 2008, she reported
headache associated with ataxia. MRI brain was negative at that time. The event was deemed a TIA and she was started on daily aspirin. In 2017, she presented with a headache a splotchy transient vision loss, CT head was normal and the event was
deemed migraine with aura. In 2019 she had sudden onset right ear hearing loss and vertigo, she had an MRI brain completed as an outpatient which revealed an incidental 8mm right posterior fossa meningioma. Follow-up MRI brain in 2020 and 2021 for
meningioma surveillance were stable, and there were no other acute findings.
Patient reports that for the past month she has been intermittently increasingly forgetful and confused. Initially she was having urinary frequency and she was evaluated at [facility] and was treated for a UTI and some 'electrolyte
abnormalities.' Patient reports that since that time, her periodic confusion and delusions persisted and she made several mistakes with her checkbook, which has never happened before. She reports that she will frequently ask her the same
question several times even though they just had a conversation about what she is asking about, and she keeps losing things. Her head feels the most 'cloudy' in the morning and seems to clear up slightly as the day goes on. Per [facility] outpatient notes,
she has been forgetting to take her medications. She presented to ER on 08/09/23 with report of ongoing confusion. CT head was obtained at that time and is negative for any acute findings. Yesterday, she felt even more 'off' and was having
completely nonsensical conversation per her , prompting him to bring her back to the ER for evaluation. Blood pressure was 190/100. Sodium level was 126, AST 91, ALT 183, alk phos 201. Patient reports that she has been having some diarrhea
since yesterday and is having bowel incontinence which is unusual. She has a mild headache currently. She gets a headache about once a week and takes Tylenol for relief. She denies any dizziness, swallowing difficulty, numbness, weakness, nausea,
chest pain, palpitations, and shortness of breath. She was recently started on xanax PRN anxiety, her first dose was three days ago on 08/17/23.
Past Medical History: HTN, HLD, hypothyroidism, migraine with aura, CHRISTIAN (cpap), GERD, colitis, IBS, hepatitis, COPD, dyspnea on exertion, b/l carpal tunnel syndrome, R ulnar neuropathy, left hand ganglion cyst, cervical stenosis/radiculopathy, RLS
Surgical History: Tubal ligation, b/l carpal tunnel release, right severed pinky repair, tonsillectomy
Family History: Father- Alzheimer's. Mother- CVA x2. Daughter- brain tumor.
Social History: Denies tobacco, alcohol, and illicit drug use.
Allergies: Penicillins, codeine.
Home Medications: See below.
Review of Symptoms:
Patient denies any fever, chest pain, shortness of breath, or symptoms.
�Per the HPI.�All systems are reviewed negative except above.
Physical Exam:
The patient is afebrile, abdomen is nondistended, breathing is unlabored, skin is warm and dry, no edema.
NIH Stroke Scale:
I performed the NIH stroke scale on the patient on 08/20/23 at 0845. The patient scored 0 points on the NIH stroke scale assessment, which were assigned as follows: See below.
Neurologic Examination:
The patient is awake, alert and oriented x 3. Next holiday: , [facility], [facility]. Most recent holiday: . Moderate difficulty with two-step commands. There is no aphasia or dysarthria. On cranial nerve assessment, pupils
are 3 mm bilateral, round and reactive to light and accommodation. Visual flores are full. Extraocular movements are intact. +1 left eye exotropia. Facial sensations are intact and bilaterally symmetrical, there is no facial asymmetry. Hearing is
intact bilaterally to normal conversation volume. Tongue palate and uvula are midline. Sternocleidomastoid strengths are full bilaterally. Motor strengths are 5/5 bilateral upper and lower extremities on medical research [place] scale. There is no
drift or involuntary movement noted. Deep tendon reflexes are 1+ bilateral upper and lower extremities and Babinski is absent bilaterally. There was no extinction noted on double simultaneous stimulation. Coordination is intact by finger to nose
bilaterally.
Lab Results: See below.
Neuro Imaging:
1. CT Head 08/09/23: No acute intracranial abnormalities. Findings again seen compatible with diffuse cortical atrophy with nonspecific white matter changes as described above.
Differentials for the patient's presentation include:
1. Toxic metabolic encephalopathy. Etiology possibly infectious, malignancy, stroke.
2. Hypertensive urgency.
3. Hyponatremia.
4. Elevated liver enzymes.
5. Diarrhea.
Patient has the following risk factors for their symptoms: Recent UTI, diarrhea, HTN, HLD, age
Recommendations:
-MRI brain with and w/o contrast ordered/pending.
-Goal normotension.
-Nephrology following for hyponatremia.
-LFT workup per primary team.
-Neurological checks per unit guidelines.
-PT/OT/ST evaluations.
-DVT prophylaxis.
-Neuropsychological testing as an outpatient.
-Will follow pending results.
Discussed patient care with: Dr. Verde, the patient
NIH Stroke Score
Subsequent NIH Scale
Date of Subsequent NIH Scale: 08/20/23
Time of Subsequent NIH Scale: 08:45
NIH Stroke Score
Level of Consciousness: 0 - Alert
LOC Questions: 0-Answers both correctly
LOC Commands: 0-Performs both correctly
Best Horizontal Gaze: 0-Normal
Visual Flores: 0=Normal, no visual loss
Facial Palsy: 0=Normal, symmetrical
Motor - Right Arm: 0=No drift 10 seconds
Motor - Left Arm: 0=No drift 10 seconds
Motor - Right Le-No drift 5 seconds
Motor - Left Le-No drift 5 seconds
Limb Ataxia: 0-Absent
Sensation: 0-Normal
Best Language: 0-No aphasia
Dysarthria: 0-Normal
Extinction and Inattention: 0-No abnormality
Total Score:: 0
Vital Signs and Labs
-
Vital Signs and Labs:
Vital Signs
Temp Pulse Resp BP Pulse Ox
98.9 F 97 18 141/80 97
08/20/23 07:30 08/20/23 07:30 08/20/23 07:30 08/20/23 07:30 08/20/23 07:30
Lab Results
08/20/23 05:32
08/20/23 09:24
Sodium Cancelled 08/20/23 09:24
Potassium Cancelled 08/20/23 09:24
BUN Cancelled 08/20/23 09:24
Glucose Cancelled 08/20/23 09:24
Calcium Cancelled 08/20/23 09:24
Vitamin B12 817 pg/ml (127-675) 08/20/23 05:32
Medications
-
Active Medications
Generic Name Dose Route Start Last Admin
Trade Name Freq PRN Reason Stop Dose Admin
Enoxaparin Sodium 40 mg 08/19/23 18:00 08/19/23 20:28
Enoxaparin Sodium 40 Mg/0.4 Ml Syringe SC 09/16/23 17:59 40 mg
QPM DENISA Administration
Hydralazine HCl 25 mg 08/19/23 20:00 08/20/23 09:58
Hydralazine 25 Mg Tablet PO 09/16/23 19:59 25 mg
BID DENISA Administration
Hydralazine HCl 5 mg 08/19/23 17:59
Hydralazine 20 Mg/Ml Vial IV 09/16/23 17:58
Q6HPRN PRN
SBP>180 DBP>105
Levothyroxine Sodium 88 mcg 08/20/23 07:00 08/20/23 05:33
Levothyroxine 88 Mcg Tablet PO 09/17/23 06:59 88 mcg
DAILY AT 0700 DENISA Administration
Oxybutynin Chloride 5 mg 08/20/23 08:00 08/20/23 09:58
Oxybutynin 5 Mg Tablet PO 09/17/23 07:59 5 mg
TID DENISA Administration
Pantoprazole Sodium 40 mg 08/20/23 08:00 08/20/23 09:58
Pantoprazole 40 Mg Delayed Release Tablet PO 09/17/23 07:59 40 mg
DAILY DENISA Administration
Sodium Chloride 0 flush 08/19/23 19:00
Sodium Chloride 0.9% (Flush) Syringe IV 09/16/23 18:59
PER PROTOCOL DENISA
Valsartan 320 mg 08/19/23 22:00 08/19/23 20:29
Valsartan 80 Mg Tablet PO 09/16/23 21:59 320 mg
HS DENISA Administration
Home Medications
Medication Instructions Recorded
cetirizine 10 mg tablet (Zyrtec) 10 mg PO DAILY Allergies 01/07/09
atorvastatin 20 mg tablet 20 mg PO DAILY High Cholesterol 03/11/17
xlbibtbo-hxek-iogb 8 mg-folic 400 1 ea PO DAILY Supplement 03/11/17
mcg-K 50 mcg-lutein 300 mcg tablet
(Centrum Silver Women)
omeprazole 40 mg capsule,delayed 40 mg PO DAILY Gastrointestinal 12/28/21
release Issue
oxybutynin chloride 15 mg 15 mg PO DAILY Urinary Issue 12/28/21
tablet,extended release 24 hr
potassium chloride 20 mEq 20 meq PO DAILY 7 days #7 tabs 08/09/23
tablet,extended release
cholecalciferol (vitamin D3) 25 50 mcg PO DAILY Supplement 08/19/23
mcg (1,000 unit) tablet (Vitamin
D3)
coenzyme Q10 300 mg capsule (Co 300 mg PO DAILY Supplement 08/19/23
Q-10)
escitalopram oxalate 5 mg tablet 5 mg PO DAILY Depression 08/19/23
hydralazine 25 mg tablet 25 mg PO BID Blood Pressure 08/19/23
levothyroxine 88 mcg tablet 88 mcg PO DAILY Thyroid 08/19/23
turmeric root extract 500 mg tablet 1,000 mg PO DAILY Supplement 08/19/23
valsartan 320 mg tablet 320 mg PO HS Blood Pressure 08/19/23

Documented by User: Ramirez Verde MD 08/20/23 10:44
NIH Stroke Score
NIH Stroke Score
Total Score:: 0
[2023-08-20] MEDS: PROTONIX 40 MG PO (09:58)
[2023-08-20] MEDS: DITROPAN 5 MG PO ×3 (09:58→21:13)
[2023-08-20] MEDS: APRESOLINE 25 MG PO ×2 (09:58→19:57)
[2023-08-20 10:06] LABS: Blood Urea Nitrogen 10 mg/dl (7-17); Calcium 9.5 mg/dl (8.4-10.2); Carbon Dioxide 23 mmol/L (22-30); Chloride 97 mmol/L (98-107); Estimated Creatinine Clearance 67 ml/min; Glucose 117 mg/dl (70-99); Potassium 3.6 mmol/L (3.5-5.1); Sodium 130 mmol/L (135-145); eGFR > 60.00
--- NOTE | 2023-08-20 13:18 | CM ---
Reviewed chart, met with patient to obtain information for assessment. Patient stated that she lives at home with her spouse in a [facility] with one step to enter. She described herself as independent with her ADLs, personal care, dressing and
bathing. She ambulates without use of an assistive device. She confirmed that she can do her box icer, cooking, cleaning and laundry. She drives and can get to all of her appointments and do her own shopping.
Patient has a prescription plan and goes to the [facility] for all of her medications in [place].
She has a PCP, Rocío Guevara DO
Patient has a CPAP but no other DME.
Patient stated that she feels that she will be able to return home when stable and does not anticipate any needs.
IMM reviewed.
Plan: Case management will continue to follow and assist with discharge planning. Patient would like to return home when stable for discharge.
--- NOTE | 2023-08-20 15:31 | W.CON.NEPH ---
Consultation
-
Date/Time Consultation Requested: 08/19/23 1800
Date/Time Consultation Performed: 08/20/23 1330
Requesting Provider: Maury Hunt
Performing Provider: Jessica Sheets
Reason for Consultation: HYponatremia
Medical History
-
Chief Complaint: Confusion
History of Present Illness:
78 yo F with PMHx of hypothyroidism on levothyroxine, HTN Valsartan, hydralazine, HLD on statin, anxiety on Lexapro recently starte don Xaomidx came with 2 weeks of intermittent confusion and malaise. Pt was in ER on 08/10 for HTN and during this time
HCTZ was d/c by PCP? sodium level of 129, repeat on was 133. She returns yesterday with c/o confusion and sodium found to be at 126. She reports not drinking large amount of liquids. She has been on Lexapro for longtime and it did not really
helped her anxiety hence xanax was added recently prior onset of symp. Offers no CP or sob, no n/v, no dysuria or abd pain or diarrhea,.
Past Medical History
hypothyroidism, HTN, HLD, anxiety
Social History
Tobacco: Non-Smoker
Alcohol: None
Drug: None
Living: With Family
Family History
Family History: Not Pertinent
Allergies / Home Medications
Allergy/AdvReac Type Severity Reaction Status Date / Time
codeine [Codeine] Allergy Nausea Verified 08/19/23 14:17
Penicillins Allergy Hives Verified 08/19/23 14:17
Medication Instructions Recorded Confirmed Type
cetirizine 10 mg tablet (Zyrtec) 10 mg PO DAILY Allergies 01/07/09 08/19/23 History
atorvastatin 20 mg tablet 20 mg PO DAILY High Cholesterol 03/11/17 08/19/23 History
lyecimnr-wyud-mtxh 8 mg-folic 400 1 ea PO DAILY Supplement 03/11/17 08/19/23 History
mcg-K 50 mcg-lutein 300 mcg tablet
(Centrum Silver Women)
omeprazole 40 mg capsule,delayed 40 mg PO DAILY Gastrointestinal 12/28/21 08/19/23 History
release Issue
oxybutynin chloride 15 mg 15 mg PO DAILY Urinary Issue 12/28/21 08/19/23 History
tablet,extended release 24 hr
potassium chloride 20 mEq 20 meq PO DAILY 7 days #7 tabs 08/09/23 08/19/23 Rx
tablet,extended release
cholecalciferol (vitamin D3) 25 50 mcg PO DAILY Supplement 08/19/23 08/19/23 History
mcg (1,000 unit) tablet (Vitamin
D3)
coenzyme Q10 300 mg capsule (Co 300 mg PO DAILY Supplement 08/19/23 08/19/23 History
Q-10)
escitalopram oxalate 5 mg tablet 5 mg PO DAILY Depression 08/19/23 08/19/23 History
hydralazine 25 mg tablet 25 mg PO BID Blood Pressure 08/19/23 08/19/23 History
levothyroxine 88 mcg tablet 88 mcg PO DAILY Thyroid 08/19/23 08/19/23 History
turmeric root extract 500 mg tablet 1,000 mg PO DAILY Supplement 08/19/23 08/19/23 History
valsartan 320 mg tablet 320 mg PO HS Blood Pressure 08/19/23 08/19/23 History
Review of Systems
-
All complete 12 point ROS have beeeen inquired and found negative other than stated in HPI
Physical Exam
Vital Signs
Vital Signs
Temp Pulse Resp BP Pulse Ox
97.7 F 86 18 167/87 99
08/20/23 15:00 08/20/23 15:00 08/20/23 15:00 08/20/23 15:00 08/20/23 15:00
Lab Results
WBC 8.5 10^3/uL (4.8-10.8) 08/20/23 05:32
RBC 3.78 10^6/uL (4.20-5.40) L 08/20/23 05:32
Hgb 11.8 g/dL (12.0-16.0) L 08/20/23 05:32
Hct 32.6 % (37.0-47.0) L 08/20/23 05:32
Plt Count 233 10^3/uL (130-400) D 08/20/23 05:32
Sodium Cancelled 08/20/23 09:24
Potassium Cancelled 08/20/23 09:24
Chloride Cancelled 08/20/23 09:24
Carbon Dioxide Cancelled 08/20/23 09:24
BUN Cancelled 08/20/23 09:24
Creatinine Cancelled 08/20/23 09:24
eGFR Cancelled 08/20/23 09:24
Glucose Cancelled 08/20/23 09:24
Calcium Cancelled 08/20/23 09:24
Albumin 3.8 g/dl (3.5-5.0) 08/20/23 05:32
TECHNIQUE: Frontal and lateral views of the chest were performed.
COMPARISON: 11/04/2018.
FINDINGS:
The lungs are clear. There is no focal consolidation, pleural effusion, or pneumothorax.� The cardiomediastinal silhouette is normal. Chronic degenerative changes of the spine. Mild lumbar levoscoliosis.
IMPRESSION:
No acute cardiopulmonary process.
Electronically signed by Hien Arce 08/19/2023 8:50 PM
Dictated By: Darlyn Arce DO
Dictated Date & Time: 08/19/232048
US abd:
IMPRESSION:
1. � Increased hepatic echogenicity most consistent with mild fatty infiltration.
2. � No acute intra-abdominal process identified.
3. � Mild gallbladder cholesterolosis as seen prior.
MRI brain:
IMPRESSION:
1. � No MRI evidence for acute infarct or intracranial hemorrhage.
2. � Moderate diffuse cerebral and cerebellar volume loss (greatest in the temporal lobes).
3. � Mild white matter leukoaraiosis in both frontal lobes.
4. � Mild paranasal sinus mucosal disease.
5. � Mild multilevel spinal cord compression and central canal stenosis in the cervical spine secondary to severe discogenic degenerative disease.
Physical Exam
General: Awake, Alert, Oriented, AOx3, No Distress and Nontoxic
HEENT: EOMI and Anicteric
Respiratory: Clear, Normal Excursion and Nonlabored Respirations
Cardiac: S1/S2 and Regular Rate/Rhythm
Abdomen: Soft, Nontender and Nondistended
Musculoskeletal: No Cyanosis and No Edema
Skin: No Rash
Neuro: Nonfocal/Grossly Intact
Psych: Mood/afflect pleasant, Insight/judgement good and Appropriate
Assessment/Plan
-
IMP:
Intermittent confusion
Poorly controlled essential HTN
Acute on chr Hyponatremia
Transaminitis with elevatd bili
Anxiety
HLD
Hypothyroidism
PLan:
A/w confusion and found acute on chr hyponatremia
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
U osmo 260, U na 54, TSH and cortisol were ok
WOuld cont to hold lexapro(note she has been on this for longtime)
sodium better today with FR
moving forward with high BPs would start low dose lasix careful watch of k
cont hydralazine and valsartan
not to resume HCTZ in future-was on before
send ARR since she had hypokalemia despite on ARB
follow LFTs
confusion w/u per neuro, MRI neg
d/w pt in detail
Data Reviewed
-
Radiology: Report Reviewed by me
Ultrasound: Report Reviewed by me
Labs: Labs Reviewed by me and Discussed with Patient
[2023-08-20] MEDS: TORADOL 15 MG IV (17:26)
[2023-08-20] MEDS: LOVENOX 40 MG SC (17:28)
[2023-08-20] MEDS: LASIX 20 MG PO (17:29)
[2023-08-20] MEDS: DIOVAN 320 MG PO (21:13)
[2023-08-21] VITALS (8 sets, daily range): BP systolic 87–169; BP diastolic 58–104
[2023-08-21] MEDS: SYNTHROID 88 MCG PO (05:14)
[2023-08-21 07:03] LABS: ALT (SGPT) 141 U/L (0-35); AST (SGOT) 69 U/L (14-36); Albumin 4.2 g/dl (3.5-5.0); Alkaline Phosphatase 160 U/L (38-126); Blood Urea Nitrogen 12 mg/dl (7-17); Calcium 9.7 mg/dl (8.4-10.2); Carbon Dioxide 25 mmol/L (22-30); Chloride 96 mmol/L (98-107); Direct Bilirubin 0.2 mg/dl (0.0-0.4); Estimated Creatinine Clearance 57 ml/min; Glucose 112 mg/dl (70-99); Potassium 3.8 mmol/L (3.5-5.1); Sodium 130 mmol/L (135-145); Total Bilirubin 0.8 mg/dl (0.2-1.3); Total Protein 7.3 g/dl (6.3-8.2); eGFR > 60.00
--- NOTE | 2023-08-21 09:01 | W.PN.HOSP.TC ---
Today's Communication/Plan
-
Added labetalol. Neurosurgery consultation. Continue monitor sodium.
Assessment / Plan
Assessment / Plan
Physical Exam
General: Well Developed, Well Nourished and No Apparent Distress
HEENT: NormoCephalic, Anicteric and Moist mucous membranes
Respiratory: Clear; No Rales or Rhonchi
Cardiac: S1/S2 and Regular Rhythm
GI: Soft, Non Tender and Non Distended
Genito-urinary: Clear Urine
Musculoskeletal: No Clubbing, No Cyanosis and No Edema
Skin: Warm
Neuro: Awake, Alert, Oriented and AO x 3
Hematologic/Lymphatic: No Lymphadenopathy
Psych: Calm
A/P:
#Intermittent confusion, toxic metabolic encephalopathy probably hyponatremia and hypertension contributing, ?cognitive deficits
#Poorly controlled essential HTN
Nephrology started her labetalol today 100 mg twice a day, continue valsartan 320 mg nightly and hydralazine 25 mg twice a day. Also on furosemide 10 minutes daily.
MRI brain--> no evidence of infarct or hemorrhage but mentions spinal cord compression and central canal stenosis in the cervical spine--> will request neurosurgery evaluation.
check Lyme titer--> pending
Neurology consult--> follow-up recommendations
cont BP meds, use IV hydralazoine PRN, avouid BP drop by more then 25% over the next 24h
Check AM cortisol--> cortisol normal 35
UA pending--> urinalysis no evidence of infection
check XR chest--> no acute chest
Bcx--> no growth but follow-up
Telemetry for at least 24h
Check B12, Ammonia--> B12 normal 817,Ammonia normal 13
#Hyponatremia
Likely SIADH and SSRI
Sodium 130 today
Continue to hold Lexapro (unclear if recently added or long-term)
No HCTZ
Start her on Lasix 20 mg daily
Urine osm--> 260
Urine sodium 54
Limit fluid intake to 1500ml
Nephro consult
#Transaminitis with elevatd bili
No RUQ tenderness
checked hepatitis profile and negative
hold statin
US RUQ ordered and results noticed with no acute abdominal process identified and mild fatty infiltration.
follow LFT
avoid tylenol
#Anxiety
#HLD
#Hypothyroidism
Check TSH--> TSH normal 4.45
hold statin
cont Synthroid
DVT ppx lovenox
Full code
Total time spent on today's encounter was 52 minutes which included time spent in counseling the patient/family regarding diagnosis and treatment plan as listed above, goals of care, and symptom management. Case was discussed with nursing staff,
specialists, and care coordinators/case management. All labs and imaging personally reviewed by me. Remainder the time spent in detailed review of previous records, lab data, imaging, and other medical provider documentation.
Anticipated Discharge: 24 - 48 hours
Subjective/Interval History
-
Date of Service: August 21, 2023
Patient denies any chest pain shortness of breath. Blood pressure still elevated.
Objective Data
-
Labs:
Laboratory Results
08/21/23
06:05
Sodium 130 L
Potassium 3.8
Chloride 96 L
Carbon Dioxide 25
BUN 12
Creatinine 0.7
Glucose 112 H
Calcium 9.7
Total Bilirubin 0.8
AST 69 H
ALT 141 H
Alkaline Phosphatase 160 H
Vital Signs:
Vital Signs
Temp Pulse Resp BP Pulse Ox
97.8 F 96 18 169/104 97
08/21/23 07:25 08/21/23 07:25 08/21/23 07:25 08/21/23 07:25 08/21/23 07:25
I&O
08/20/23 08/21/23 08/22/23
06:59 06:59 06:59
Intake Total 240 / 240 820 / 1060 240 / 240
Balance 240 / 240 820 / 1060 240 / 240
Review of Systems
-
All other systems: Reviewed and negative
[2023-08-21] MEDS: LASIX 20 MG PO (09:12)
[2023-08-21] MEDS: DITROPAN 5 MG PO ×3 (09:12→20:59)
[2023-08-21] MEDS: APRESOLINE 25 MG PO ×2 (09:12→20:56)
[2023-08-21] MEDS: PROTONIX 40 MG PO (09:13)
--- NOTE | 2023-08-21 11:34 | W.PN.NEPH.PH ---
Today's Communication / Plan
-
cont lasix, FR
labetalol 100 BID start
Assessment/Plan
-
IMP:
Intermittent confusion
Poorly controlled essential HTN
Acute on chr Hyponatremia
Transaminitis with elevatd bili
Anxiety
HLD
Hypothyroidism
PLan:
A/w confusion and found acute on chr hyponatremia
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
U osmo 260, U na 54, TSH and cortisol were ok
WOuld cont to hold lexapro(note she has been on this for longtime)
sodium stable at 130 on lasix
BP remains high ad labetalol 100 BID and cont vaslartan
wean hydralazine if needed
not to resume HCTZ in future-was on before
sent ARR since she had hypokalemia despite on ARB
follow LFTs
d/w pt and daughter on phone in detail
-
-
Date of Service: August 21, 2023
CC / HPI / ROS
-
Chief Complaint:
hyponatremia
History of Present Illness:
sodium stable at 130
BP are high
LFTs remians high
k normal
Review of Systems:
no cp or sob
feels at baseline
HYDABURG
Labs
-
Labs:
WBC 8.5 10^3/uL (4.8-10.8) 08/20/23 05:32
RBC 3.78 10^6/uL (4.20-5.40) L 08/20/23 05:32
Hgb 11.8 g/dL (12.0-16.0) L 08/20/23 05:32
Hct 32.6 % (37.0-47.0) L 08/20/23 05:32
Plt Count 233 10^3/uL (130-400) D 08/20/23 05:32
Sodium 130 mmol/L (135-145) L 08/21/23 06:05
Potassium 3.8 mmol/L (3.5-5.1) 08/21/23 06:05
Chloride 96 mmol/L (98-107) L 08/21/23 06:05
Carbon Dioxide 25 mmol/L (22-30) 08/21/23 06:05
BUN 12 mg/dl (7-17) 08/21/23 06:05
Creatinine 0.7 mg/dL (0.6-1.0) 08/21/23 06:05
eGFR > 60.00 08/21/23 06:05
Glucose 112 mg/dl (70-99) H 08/21/23 06:05
Calcium 9.7 mg/dl (8.4-10.2) 08/21/23 06:05
Albumin 4.2 g/dl (3.5-5.0) 08/21/23 06:05
Physical Exam
-
Vital Signs:
Vital Signs
Temp Pulse Resp BP Pulse Ox
97.8 F 96 18 169/104 97
08/21/23 07:25 08/21/23 07:25 08/21/23 07:25 08/21/23 07:25 08/21/23 07:25
Cardiovascular:: Regular rate and rhythm
Respiratory:: Bilateral: CTA
Lung Excursion:: Normal
Abdomen:: Nontender and Soft
Extremity Edema:: None: Bilateral:
Alvarez Catheter: No
[2023-08-21] MEDS: TRANDATE 100 MG PO (12:23)
--- NOTE | 2023-08-21 13:23 | CON.NS ---
Consultation
-
Date/Time Consultation Performed: 13:30, 08/21/2023
Requesting Provider: Ventura
Performing Provider: Veto
Chief Complaint
History of Present Illness
This is a neurosurgical consultation on a 78-year-old female who presented on 08/19/2023 with 2-week history of intermittent confusion and malaise. It was noted that her blood pressure was poorly controlled. She had a noncontrast CT scan of the
head, which was negative for any acute pathology. She has been admitted, and being worked up for metabolic encephalopathy. Patient was found to be hyponatremic, and also was noted that she had started Lexapro approximately 1 week prior. She is
being treated for this. There is chart note that states that she has an incidental right posterior fossa meningioma, that has been monitored with brain MRIs performed in 2020, 2021 with surveillance imaging. He was advised that the patient would
benefit from an MRI of the brain with and without contrast. Which was performed.MRI of the brain revealed reported multilevel cervical spinal stenosis. Neurosurgery consulted for this.
Patient seen and examined at bedside. at bedside. Denies any neck pain. Denies numbness, tingling or weakness of hands or legs. Denies any frequent falls.
Denies dexterity difficulties that are new--reports she has had tremor chronically, and that will cause clumsiness when handling objects.
Review of Systems
-
A 10 point review of systems was performed which included constitutional, ENT, cardiovascular, respiratory, GI, , musculoskeletal, neurologic, endocrinologic, hematologic. And was negative, except for stated in HPI
Medication and Allergies
Home Medications
Home Medications
Medication Instructions Recorded
cetirizine 10 mg tablet (Zyrtec) 10 mg PO DAILY Allergies 01/07/09
atorvastatin 20 mg tablet 20 mg PO DAILY High Cholesterol 03/11/17
iguzuehv-hady-ifla 8 mg-folic 400 1 ea PO DAILY Supplement 03/11/17
mcg-K 50 mcg-lutein 300 mcg tablet
(Centrum Silver Women)
omeprazole 40 mg capsule,delayed 40 mg PO DAILY Gastrointestinal 12/28/21
release Issue
oxybutynin chloride 15 mg 15 mg PO DAILY Urinary Issue 12/28/21
tablet,extended release 24 hr
potassium chloride 20 mEq 20 meq PO DAILY 7 days #7 tabs 08/09/23
tablet,extended release
cholecalciferol (vitamin D3) 25 50 mcg PO DAILY Supplement 08/19/23
mcg (1,000 unit) tablet (Vitamin
D3)
coenzyme Q10 300 mg capsule (Co 300 mg PO DAILY Supplement 08/19/23
Q-10)
escitalopram oxalate 5 mg tablet 5 mg PO DAILY Depression 08/19/23
hydralazine 25 mg tablet 25 mg PO BID Blood Pressure 08/19/23
levothyroxine 88 mcg tablet 88 mcg PO DAILY Thyroid 08/19/23
turmeric root extract 500 mg tablet 1,000 mg PO DAILY Supplement 08/19/23
valsartan 320 mg tablet 320 mg PO HS Blood Pressure 08/19/23
Allergies
Allergies
Allergy/AdvReac Type Severity Reaction Status Date / Time
codeine [Codeine] Allergy Nausea Verified 08/19/23 14:17
Penicillins Allergy Hives Verified 08/19/23 14:17
Physical Exam
-
Exam:
awake, alert, NAD
oriented x 3
PERRL, EOMI
Face symmetric, tongue midline
Motor: 5/5 in upper and lower extremities.
Reflexes: 2+ in upper and lower extremities.
No clonus, or Hoffmans.
Gait not tested.
Head: NC/AT
Neck supple,
Breathing nonlabored.
Normal rate and rhythm.
Abd soft.
Extremities warm.
Exams:� MR Brain W/o & With Contrast
CPT: 13226
PROCEDURE: MR Brain W/o  With Contrast
CLINICAL INDICATION: Intermittent confusion. Change in mental status. Hyponatremia. Hypertension. Hypercholesterolemia.
TECHNIQUE: An MRI examination of the brain was performed with and without intravenous contrast on a 1.5 Carol magnet. 3-D thin section T1 gradient echo, axial diffusion, and axial T2 gradient echo imaging sequences were obtained prior to the
administration of intravenous contrast. Following the intravenous administration of 15 mL Clariscan gadolinium contrast material, coronal T2, axial FLAIR, axial T2, and thin section 3-D T1 gradient echo imaging sequences were obtained.
COMPARISON: Comparison is made with a noncontrast CT examination of the head performed 08/09/2023 and an MRI examination of the brain performed 03/31/2022.
FINDINGS:
There is moderate diffuse cerebral and cerebellar volume loss which is most pronounced in the temporal lobes. There is mild ex vacuo dilatation of the ventricular system. There is no midline shift herniation. There is no MRI evidence for acute or
chronic intracranial hemorrhage. There are no extra-axial fluid collections.
There is no MRI evidence for restricted diffusion to suggest acute infarction. There is a mild amount of low T1 and high T2/FLAIR signal intensity white matter disease in the frontal lobes consistent with mild white matter leukoaraiosis.
There is no MRI evidence for abnormal intracranial enhancement. 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
There is moderate bilateral hyperostosis frontalis interna. The inner table of frontal bones causes mild amount of compression on the anterior frontal lobe gyri. 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 There is mild mucosal thickening in
the ethmoid air cells and in the left maxillary sinus. There are small mucous retention cysts in the inferior left maxillary sinus antrum. The mid nasal septum is mildly deviated to the left. There is a delisa bullosa in the right middle nasal
turbinate. There is moderate fluid in the left mastoid air cells and mild fluid in the right mastoid air cells.
There is moderate thickening of the transverse ligament posterior to the dens. There is moderate to severe right-sided facet joint arthrosis at C2/C3. There is a moderate-sized disc-osteophyte complex at C3/C4 causing mild spinal cord compression
and central canal stenosis. There is moderate to severe right-sided facet joint arthrosis at C3/C4. There is severe discogenic degenerative disease at C4/C5 with a moderate-sized central disc-osteophyte complex causing mild spinal cord compression
and central canal stenosis. There is a small central disc herniation at C5/C6 causing mild spinal cord compression.
IMPRESSION:
1. � No MRI evidence for acute infarct or intracranial hemorrhage.
2. � Moderate diffuse cerebral and cerebellar volume loss (greatest in the temporal lobes).
3. � Mild white matter leukoaraiosis in both frontal lobes.
4. � Mild paranasal sinus mucosal disease.
5. � Mild multilevel spinal cord compression and central canal stenosis in the cervical spine secondary to severe discogenic degenerative disease.
Electronically signed by Reed Uribe MD 08/20/2023 12:59 PM
Dictated By: Reed Uribe MD.
Dictated Date & Time: 08/20/23 1243
MRI of the brain without contrast that was performed on 08/20/2023 was reviewed. Images were personally reviewed by me. There is a small right cerebellar pontine angle/tentorial homogeneously enhancing mass which appears to be consistent with
meningioma on the right side. There is no evidence of brain compression noted. There is no evidence of FLAIR signal hyperintensity noted. Sagittal imaging of the brain scans down to approximately C5. There is evidence of cervical spondylosis,
and mild to moderate spinal canal impingement noted at C4-C5. The caudal aspect of the cervical cord is not appreciated.
Problems
-
Problem Status Onset Code
Altered mental status R41.82
Acute hyponatremia E87.1
Elevated LFTs R79.89
Assessment / Plan
-
This is a 78-year-old female who presents with altered mental status, confusion. She is undergoing workup for metabolic encephalopathy. MRI of the brain demonstrates incidental rostral cervical spondylotic changes, most significant at C4-C5.
There is no obvious evidence of cord signal change or obvious severe cord compression noted. Also, patient without any signs or symptomatology of cervical myelopathy.
ATPresent time, recommend ongoing workup and treatment for patient's metabolic encephalopathy. If, she continues to have ambulatory dysfunction, or symptoms of myelopathy, once she has recovered from her acute metabolic encephalopathy, then she can
follow-up as an outpatient, at which time we can obtain an MRI of the cervical spine.
[2023-08-21] MEDS: NSS 500 IV (14:37)
--- NOTE | 2023-08-21 15:44 | PTCARENOTE ---
Patient called RN into room because she hit her head on the grab bar in the bathroom and felt dizzy. Vital signs were taken and bp was 82/60...was previously 150 for SBP. Pt received first dose of labetalol around noon today for hypertension. RN
relayed episode to hospitalist and nephrology who originally ordered labetalol. Further doses are now discontinued, 500 mL bolus of NSS given with repeat bp reading of 109/62. Patient experienced no head pain and neurological assessment is within
normal limits. Hospitalist ordered a CT of head. Bed alarm on patient, call pratt within reach.
[2023-08-21 16:13] LABS: Sodium 127 mmol/L (135-145)
[2023-08-21] MEDS: LOVENOX 40 MG SC (19:06)
[2023-08-21] MEDS: DIOVAN 320 MG PO (20:59)
--- NOTE | 2023-08-21 22:00 | PTCARENOTE ---
Pt complaining of redness/ itchiness. Pt states 'they gave me a new medication this afternoon I think I am reacting to it'. HECTOR Walsh notified. New orders obtained.
[2023-08-21] MEDS: ZYRTEC 10 MG PO (22:56)
[2023-08-22] VITALS (7 sets, daily range): BP systolic 126–172; BP diastolic 66–91; PULSE 82; O2SAT 97
[2023-08-22] MEDS: SYNTHROID 88 MCG PO (05:14)
[2023-08-22 06:01] LABS: Hematocrit 33.4 % (37.0-47.0); Hemoglobin 11.5 g/dL (12.0-16.0); Mean Corp Hgb Conc. 34.4 g/dL (33.0-37.0); Mean Corpuscular Hgb 30.9 pg (27.0-31.0); Mean Corpuscular Volume 89.8 fL (81.0-99.0); Platelet Count 308 10^3/uL (130-400); Red Blood Cell Count 3.72 10^6/uL (4.20-5.40); Red Cell Dist. Width 14.3 % (11.5-14.5); White Blood Cell Count 10.4 10^3/uL (4.8-10.8)
[2023-08-22 06:27] LABS: ALT (SGPT) 100 U/L (0-35); AST (SGOT) 52 U/L (14-36); Albumin 3.8 g/dl (3.5-5.0); Alkaline Phosphatase 129 U/L (38-126); Blood Urea Nitrogen 12 mg/dl (7-17); Calcium 9.4 mg/dl (8.4-10.2); Carbon Dioxide 22 mmol/L (22-30); Chloride 97 mmol/L (98-107); Direct Bilirubin 0.2 mg/dl (0.0-0.4); Estimated Creatinine Clearance 57 ml/min; Glucose 111 mg/dl (70-99); Potassium 3.6 mmol/L (3.5-5.1); Sodium 127 mmol/L (135-145); Total Bilirubin 0.8 mg/dl (0.2-1.3); Total Protein 6.5 g/dl (6.3-8.2); eGFR > 60.00
[2023-08-22] MEDS: PROTONIX 40 MG PO (08:19)
[2023-08-22] MEDS: LASIX 20 MG PO (08:19)
[2023-08-22] MEDS: APRESOLINE 25 MG PO ×2 (08:19→21:11)
[2023-08-22] MEDS: DITROPAN 5 MG PO ×3 (10:07→23:05)
--- NOTE | 2023-08-22 10:17 | W.PN.HOSP.TC ---
Today's Communication/Plan
-
Samsca today. Restarted Lexapro. Monitor sodium
Assessment / Plan
Assessment / Plan
Physical Exam
General: Well Developed, Well Nourished and No Apparent Distress
HEENT: NormoCephalic, Anicteric and Moist mucous membranes
Respiratory: Clear; No Rales or Rhonchi
Cardiac: S1/S2 and Regular Rhythm
GI: Soft, Non Tender and Non Distended
Genito-urinary: Clear Urine
Musculoskeletal: No Clubbing, No Cyanosis and No Edema
Skin: Warm
Neuro: Awake, Alert, Oriented and AO x 3
Hematologic/Lymphatic: No Lymphadenopathy
Psych: Calm
A/P:
#Intermittent confusion, toxic metabolic encephalopathy probably hyponatremia and hypertension contributing, ?cognitive deficits
#Poorly controlled essential HTN
Blood pressure improving
Yesterday labetalol initiated but after drop in blood pressure she had to be given IV fluids and labetalol discontinued.
Continue valsartan 320 mg nightly and hydralazine 25 mg twice a day. Also on furosemide 10 mg daily.
MRI brain--> no evidence of infarct or hemorrhage but mentions spinal cord compression and central canal stenosis in the cervical spine--> will request neurosurgery evaluation.
check Lyme titer--> pending
Neurology consult--> follow-up recommendations
Checked AM cortisol--> cortisol normal 35
UA--> urinalysis no evidence of infection
checked XR chest--> no acute chest pathology
Bcx--> no growth so far
Telemetry
Check B12, Ammonia--> B12 normal 817,Ammonia normal 13
Discussed with daughter over the phone today on 08/21
Patient wants to go home tomorrow but cautioned her it all depends on electrolyte and clearance by nephrology and reevaluation clinically tomorrow obviously.
#Hyponatremia
Likely SIADH
Unclear if SSRI contributed and family would like to restart SSRI to avoid withdrawal and we ran it by nephrology and nephrology okay to restart today
Sodium 127 today
Nephrology will use Samsca today
No HCTZ
Start her on Lasix 20 mg daily
Urine osm--> 260
Urine sodium 54
Limit fluid intake to 1500ml
Nephro consult appreciated
#Transaminitis with elevatd bili
No RUQ tenderness
checked hepatitis profile and negative
hold statin
US RUQ ordered and results noticed with no acute abdominal process identified and mild fatty infiltration.
follow LFT
avoid tylenol
#Anxiety
#HLD
#Hypothyroidism
Check TSH--> TSH normal 4.45
hold statin
cont Synthroid
DVT ppx lovenox
Full code
Anticipated Discharge: 24 - 48 hours
Subjective/Interval History
-
Date of Service: August 22, 2023
Patient feels well overall. Blood pressure better. Sodium on the other hand a little bit lower. Afebrile
Objective Data
-
Labs:
Laboratory Results
08/22/23
05:49
WBC 10.4
Hgb 11.5 L
Hct 33.4 L
Plt Count 308 D
Sodium 127 L
Potassium 3.6
Chloride 97 L
Carbon Dioxide 22
BUN 12
Creatinine 0.7
Glucose 111 H
Calcium 9.4
Total Bilirubin 0.8
AST 52 H
ALT 100 H
Alkaline Phosphatase 129 H
Vital Signs:
Vital Signs
Temp Pulse Resp BP Pulse Ox
98.9 F 77 22 163/89 95
08/22/23 07:40 08/22/23 07:40 08/22/23 07:40 08/22/23 07:40 08/22/23 07:40
I&O
08/21/23 08/22/23 08/23/23
06:59 06:59 06:59
Intake Total 820 / 1060 2540 / 2540 480 / 480
Output Total 150 / 150
Balance 820 / 1060 2390 / 2390 480 / 480
[2023-08-22 13:06] LABS: Blood Urea Nitrogen 11 mg/dl (7-17); Calcium 9.4 mg/dl (8.4-10.2); Carbon Dioxide 23 mmol/L (22-30); Chloride 98 mmol/L (98-107); Estimated Creatinine Clearance 50 ml/min; Glucose 119 mg/dl (70-99); Potassium 3.7 mmol/L (3.5-5.1); Sodium 127 mmol/L (135-145); eGFR > 60.00
[2023-08-22] MEDS: LEXAPRO 5 MG PO (14:40)
--- NOTE | 2023-08-22 14:58 | W.PN.NEPH.PH ---
Today's Communication / Plan
-
samsca later today
Assessment/Plan
-
IMP:
Intermittent confusion
Poorly controlled essential HTN
Acute on chr Hyponatremia
Transaminitis with elevatd bili
Anxiety
HLD
Hypothyroidism
PLan:
A/w confusion and found acute on chr hyponatremia
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
U osmo 260, U na 54, TSH and cortisol were ok
Family cocern of stopping Lexapro-ok to resume and pt should discuss this with her PCP
sodium decreased to 127 s/p IVF for hypotension on 08/20
will dose samsca today
no labetalol in future which caused hypotension
BP remains high cont vaslartan and hydralazine
not to resume HCTZ in future-was on before , started low dose lasix cont at d/c with FR
sent ARR since she had hypokalemia despite on ARB , pending report
follow LFTs
d/w pt and daughter on phone in detail
If sodium better tomorrow ok to d/c
cont lasix and FR
ok to cont Lexapro
f/u PCP , Nephro if needed
-
-
Date of Service: August 22, 2023
CC / HPI / ROS
-
Chief Complaint:
hyponatremia
History of Present Illness:
sodium low at 127
BP are high
was hypotensive with labetalol 100mg required NS 500cc bolus
LFTs remians high
k normal
Review of Systems:
no cp or sob
feels at baseline
PAUMA
Labs
-
Labs:
WBC 10.4 10^3/uL (4.8-10.8) 08/22/23 05:49
RBC 3.72 10^6/uL (4.20-5.40) L 08/22/23 05:49
Hgb 11.5 g/dL (12.0-16.0) L 08/22/23 05:49
Hct 33.4 % (37.0-47.0) L 08/22/23 05:49
Plt Count 308 10^3/uL (130-400) D 08/22/23 05:49
Sodium 127 mmol/L (135-145) L 08/22/23 12:40
Potassium 3.7 mmol/L (3.5-5.1) 08/22/23 12:40
Chloride 98 mmol/L (98-107) 08/22/23 12:40
Carbon Dioxide 23 mmol/L (22-30) 08/22/23 12:40
BUN 11 mg/dl (7-17) 08/22/23 12:40
Creatinine 0.8 mg/dL (0.6-1.0) 08/22/23 12:40
eGFR > 60.00 08/22/23 12:40
Glucose 119 mg/dl (70-99) H 08/22/23 12:40
Calcium 9.4 mg/dl (8.4-10.2) 08/22/23 12:40
Albumin 3.8 g/dl (3.5-5.0) 08/22/23 05:49
Physical Exam
-
Vital Signs:
Vital Signs
Temp Pulse Resp BP Pulse Ox
98.1 F 80 14 154/82 97
08/22/23 11:58 08/22/23 11:58 08/22/23 11:58 08/22/23 11:58 08/22/23 11:58
Cardiovascular:: Regular rate and rhythm
Respiratory:: Bilateral: CTA
Lung Excursion:: Normal
Abdomen:: Nontender and Soft
Extremity Edema:: None: Bilateral:
Alvarez Catheter: No
[2023-08-22] MEDS: SAMSCA 7.5 MG PO (16:49)
[2023-08-22] MEDS: LOVENOX 40 MG SC (17:52)
[2023-08-22] MEDS: DIOVAN 320 MG PO (22:58)
[2023-08-22] MEDS: TYLENOL 650 MG PO (23:05)
[2023-08-23 03:33] VITALS: BP 133/67
[2023-08-23 05:54] VITALS: BMI 30.9
[2023-08-23] MEDS: SYNTHROID 88 MCG PO (06:03)
[2023-08-23 06:07] VITALS: BMI 30.9
[2023-08-23 07:46] VITALS: BP 139/84
[2023-08-23] MEDS: LEXAPRO 5 MG PO (08:00)
[2023-08-23] MEDS: APRESOLINE 25 MG PO (08:00)
[2023-08-23] MEDS: DITROPAN 5 MG PO (08:00)
[2023-08-23] MEDS: LASIX 20 MG PO (08:00)
[2023-08-23] MEDS: PROTONIX 40 MG PO (08:00)
[2023-08-23 08:30] LABS: ALT (SGPT) 83 U/L (0-35); AST (SGOT) 41 U/L (14-36); Albumin 3.7 g/dl (3.5-5.0); Alkaline Phosphatase 122 U/L (38-126); Blood Urea Nitrogen 15 mg/dl (7-17); Calcium 9.5 mg/dl (8.4-10.2); Carbon Dioxide 24 mmol/L (22-30); Chloride 104 mmol/L (98-107); Direct Bilirubin 0.2 mg/dl (0.0-0.4); Estimated Creatinine Clearance 57 ml/min; Glucose 113 mg/dl (70-99); Potassium 4.2 mmol/L (3.5-5.1); Sodium 135 mmol/L (135-145); Total Bilirubin 0.5 mg/dl (0.2-1.3); Total Protein 6.6 g/dl (6.3-8.2); eGFR > 60.00
[2023-08-23 08:46] LABS: Hemoglobin 11.6 g/dL (12.0-16.0); Mean Corp Hgb Conc. 34.1 g/dL (33.0-37.0); Mean Corpuscular Hgb 31.2 pg (27.0-31.0); Mean Corpuscular Volume 91.4 fL (81.0-99.0); Mean Platelet Volume 10.7 fL (7.4-10.4); Platelet Count 291 10^3/uL (130-400); Red Blood Cell Count 3.72 10^6/uL (4.20-5.40); Red Cell Dist. Width 14.9 % (11.5-14.5); White Blood Cell Count 8.8 10^3/uL (4.8-10.8)
--- NOTE | 2023-08-23 10:20 | W.PN.HOSP.TC ---
Today's Communication/Plan
-
Hopefully trying discharge after being seen and cleared by nephrology plan is for discontinuation of hydrochlorothiazide resume Lexapro but add on Lasix 20 mg daily and fluid restriction
If she have any further issues with ambulation and/or weakness follow-up with neurosurgical service for outpatient cervical MRI they found no criteria for intervention or further studies at this point given probable metabolic encephalopathy as cause.
Assessment / Plan
Assessment / Plan
Physical Exam
General: Well Developed, Well Nourished and No Apparent Distress
HEENT: NormoCephalic, Anicteric and Moist mucous membranes
Respiratory: Clear; No Rales or Rhonchi
Cardiac: S1/S2 and Regular Rhythm
GI: Soft, Non Tender and Non Distended
Genito-urinary: Clear Urine
Musculoskeletal: No Clubbing, No Cyanosis and No Edema
Skin: Warm
Neuro: Awake, Alert, Oriented and AO x 3
Hematologic/Lymphatic: No Lymphadenopathy
Psych: Calm
A/P:
#Intermittent confusion, toxic metabolic encephalopathy probably hyponatremia and hypertension contributing, ?cognitive deficits
#Poorly controlled essential HTN
Blood pressure improving
Yesterday labetalol initiated but after drop in blood pressure she had to be given IV fluids and labetalol discontinued.
Continue valsartan 320 mg nightly and hydralazine 25 mg twice a day. Also on furosemide 10 mg daily.
MRI brain--> no evidence of infarct or hemorrhage but mentions spinal cord compression and central canal stenosis in the cervical spine--> neurosurgery evaluation:�recommend ongoing workup and treatment for patient's metabolic encephalopathy.� If,
she continues to have ambulatory dysfunction, or symptoms of myelopathy, once she has recovered from her acute metabolic encephalopathy, then she can follow-up as an outpatient, at which time we can obtain an MRI of the cervical spine.
check Lyme titer--> pending
Neurology consult--> follow-up recommendations
Checked AM cortisol--> cortisol normal 35
UA--> urinalysis no evidence of infection
checked XR chest--> no acute chest pathology
Bcx--> no growth so far
Telemetry
Check B12, Ammonia--> B12 normal 817,Ammonia normal 13
Discussed with daughter over the phone today on 08/21
Patient wants to go home tomorrow but cautioned her it all depends on electrolyte and clearance by nephrology and reevaluation clinically tomorrow obviously.
#Hyponatremia
Likely SIADH
Unclear if SSRI contributed and family would like to restart SSRI to avoid withdrawal and we ran it by nephrology and nephrology okay to restart today
Sodium 127 today
Nephrology will use Samsca today
No HCTZ
Start her on Lasix 20 mg daily
Urine osm--> 260
Urine sodium 54
Limit fluid intake to 1500ml
Nephro consult appreciated
#Transaminitis with elevatd bili
No RUQ tenderness
checked hepatitis profile and negative
hold statin
US RUQ ordered and results noticed with no acute abdominal process identified and mild fatty infiltration.
follow LFT
avoid tylenol
#Anxiety
#HLD
#Hypothyroidism
Check TSH--> TSH normal 4.45
hold statin
cont Synthroid
DVT ppx lovenox
Full code
Anticipated Discharge: Within 24 hours
Subjective/Interval History
-
Date of Service: August 23, 2023
She denies any complaint denies any lightheadedness shortness of breath had no issues with walking yesterday
Objective Data
-
Labs:
Laboratory Results
08/23/23
07:17
WBC 8.8
Hgb 11.6 L
Hct 34.0 L
Plt Count 291
Sodium 135 D
Potassium 4.2
Chloride 104
Carbon Dioxide 24
BUN 15
Creatinine 0.7
Glucose 113 H
Calcium 9.5
Total Bilirubin 0.5
AST 41 H
ALT 83 H
Alkaline Phosphatase 122
Vital Signs:
Vital Signs
Temp Pulse Resp BP Pulse Ox
98.2 F 75 14 139/84 96
08/23/23 07:46 08/23/23 08:00 08/23/23 07:46 08/23/23 08:00 08/23/23 07:46
I&O
08/22/23 08/23/23 08/24/23
06:59 06:59 06:59
Intake Total 2540 / 2540 1200 / 1200
Output Total 150 / 150 4 / 4
Balance 2390 / 2390 1196 / 1196
Review of Systems
-
History Source: Patient
All other systems: Not reviewed unless documented
EENT: Reports No Symptoms Reported
Respiratory: Reports No Symptoms
Cardiac: Reports No Symptoms
Abdomen/GI: Reports No Symptoms
Physical Exam
-
General: Well Developed
HEENT: Normocephalic
Respiratory: Clear to Auscultation
Cardiac: Regular Rhythm
GI: Soft
Neuro: Awake and Alert
Data Reviewed
-
Total Time Spent with Patient (in minutes): 45
Labs: Labs Reviewed by me (Sodium up to 135)
--- NOTE | 2023-08-23 11:29 | CM ---
Chart reviewed and plan is for patient to return to home at discharge, per patient her spouse will transport her to home.
Plan; Home no needs.
[2023-08-23 11:36] VITALS: BP 157/87
--- NOTE | 2023-08-23 14:49 | W.DCSUMMARY ---
Discharge Summary
Discharge Data
Date of Admission: 08/19/23
Date of Discharge: 08/23/23
-
Pending Results: No
Hospital Course
Patient is a 78-year-old female admitted because of a stage II confusion that was transient and was found to have acute on chronic hyponatremia on presentation also noted to be hypertensive on presentation.
Initial assessment included obtaining urine sodium and urine osmolality along with a CT image and an MRI MRI showing no evidence of any infarct or hemorrhage but did mention some spinal cord compression and central canal stenosis in the cervical
spine prompting consultation with a neurosurgery service. In relation to her presentation hypertension she received a dosage of labetalol but subsequently developed hypotension and it was again discontinued. Nephrology was consulted to address
hyponatremia and she did receive a dosage of Samsca after obtaining urine sodium 54 and a urine osmolality of 260 of note the patient had been on hydrochlorothiazide and that was held at the time of presentation she was instructed on fluid intake
reduction and also the need to permanently withhold hydrochlorothiazide in favor of low dosage of Lasix at time of discharge.Neurosurgical evaluation recommended ongoing workup and treatment for patient's metabolic encephalopathy only. If she
continues to have ambulatory dysfunction which was not the case and symptoms or consistent with myelopathy they agreed to see the patient on an outpatient basis after correction of her metabolic encephalopathy. At that time consideration will be
made for an MRI of the cervical spine.
Urinalysis showed no evidence of infection a chest x-ray was unremarkable blood cultures are no growth to date of discharge
B12 level was normal and ammonia level was measured at 13
Laboratory profiling that is pending includes a aldosterone renin ratio given presentation of hypertension and hypokalemia and a Lyme titer still pending
A serum cortisol was 35 normal
She has been seen and evaluated by physical therapy and is fully ambulatory without difficulty no further deficits. Her sodium at the time of discharge was 129-hour after Samsca she has been instructed to withhold permanently her
hydrochlorothiazide and instructed on fluid restriction and to continue on Lasix 20 mg a day called into her local pharmacy
She can resume usage of Lexapro.
Discharge Plan
-
Patient Disposition: Home (Routine Discharge)
Discharge Diagnosis/Procedures: Acute symptomatic hyponatremia
Resolving transaminitis
Essential hypertension
Cervical spinal stenosis?
Condition: Good
Diet: Restrict fluids to 48 oz
Activity: As tolerated
Additional Activity: If you have continued difficulties with ambulation and or weakness follow-up with neurosurgery as outpatient as they may want to pursue MRI of the cervical spine
Driving Restrictions: As prior to admission
Referrals:
Rocío Guevara, [Family Provider] - in less than 1 week (Follow-up of aldosterone renin ratio obtain during hospitalization)
Prescriptions:
New
furosemide 20 mg Tablet
20 mg PO DAILY Qty: 30 0RF
Continued
cetirizine [Zyrtec] 10 mg Tablet
10 mg PO DAILY
atorvastatin 20 MG tablet
20 mg PO DAILY
Centrum Silver Women 1 EACH tablet
1 ea PO DAILY
oxybutynin chloride 15 mg Tablet Extended Release 24hr
15 mg PO DAILY
omeprazole 40 mg Capsule,Delayed Release(Dr/Ec)
40 mg PO DAILY
hydralazine 25 mg tablet
25 mg PO BID
levothyroxine 88 mcg tablet
88 mcg PO DAILY
valsartan 320 mg tablet
320 mg PO HS
Co Q-10 300 mg Capsule
300 mg PO DAILY
escitalopram oxalate 5 mg tablet
5 mg PO DAILY
cholecalciferol (vitamin D3) [Vitamin D3] 25 mcg (1,000 unit) Tablet
50 mcg PO DAILY
turmeric root extract 500 mg Tablet
1,000 mg PO DAILY
Discontinued
potassium chloride 20 mEq tablet extended release
20 meq PO DAILY 7 Days Qty: 7 0RF
Discharge Orders:
Discharge Patient (As Directed); Ordered 08/23/23
Ordered By: Quique Mejia
Discharge Date and Time
Discharge Date/Time: 08/23/23 13:41
[2023-08-23 15:49] LABS: Lyme Antibody Screen, EIA Negative (Negative)
[2023-08-24 10:21] LABS: Aldosterone, Serum 4.4 ng/dL; Aldosterone/Renin Activ Ratio 2.2 ratio (<=25.0)
== END 2023-08-23 13:41 | disposition home or self-care (01) | DRG 643 ==
LOC: 4 WEST ACU 17:08
PROVIDERS: Emergency Medicine; Hospitalist; Internal Medicine; ADMITTING PHYSICIAN Internal Medicine; ATTENDING PHYSICIAN Internal Medicine; CONSULT PHYSICIAN Psychiatry & Neurology Neurology; CONSULT PHYSICIAN Student in an Organized Health Care Education/Training Program; EMERGENCY PHYSICIAN Student in an Organized Health Care Education/Training Program; FAMILY PHYSICIAN Family Medicine; OTHER PHYSICIAN Neurological Surgery
DX: E22.2 Syndrome of inappropriate secretion of antidiuretic hormone (principal); G92.8 Other toxic encephalopathy; I10 Essential (primary) hypertension; E03.9 Hypothyroidism, unspecified; E78.00 Pure hypercholesterolemia, unspecified; F41.9 Anxiety disorder, unspecified
CPT/HCPCS: 36415; 70450; 70553; 71046; 76700; 80048; 80053; 80076; 81003; 82088; 82140; 82248; 82533; 82607; 83735; 83935; 84132; 84244; 84295; 84300; 84443; 85025; 85027; 86618; 86704; 86706; 86708; 86803; 87340; 93005; 97116; 97162; 99285

== ENCOUNTER 2023-08-24 14:48 | Inpatient (IN) | payer MEDICARE, BC, SELFPAY ==
[2023-08-24] VITALS (11 sets, daily range): BP systolic 124–201; BP diastolic 64–99; BMI 30.7
--- NOTE | 2023-08-24 11:36 | ED.GENMED ---
History of Present Illness
<HECTOR Easton - Last Filed: 08/24/23 13:55>
General
Chief Complaint: Change in Mental Status
Source: spouse
Exam Limitations: none
Time Seen by Provider: 08/24/23 11:19
Nursing documentation reviewed up to this point in time: agreed with
Travel History
Have you had any contact with someone who has COVID-19?: No
Do you have any symptoms of coronavirus? Fever > 100 degrees, chills, cough, shortness of breath, sore throat, loss of taste or smell, muscle aches, or headache?: No
History of Present Illness
History of Present Illness:
Patient is a 78-year-old female who presents to the ER brought by . reports patient was just discharged in the hospital yesterday. In review of discharge summary, patient presented for confusion August 18 and was found to be
hyponatremic and hypertensive. Patient was treated for her hyponatremia and was instructed to stop HCTZ, do fluid restriction and continue on Lasix 20 mg a day. Patient was able to resume her Lexapro. Patient arrives awake alert rambling anxious
and restless. Here she is. reports patient was up all night and is more confused than she was when she was in the hospital. Patient is aware that she is in the hospital able to state her name is aware that she is confused.
Past History
<HECTOR Easton - Last Filed: 08/24/23 13:55>
Past History
ED Past Medical History: GERD, HTN, Hypercholesterolemia, Hypothyroidism and Other (Migraines, Sleep apnea uses CPAP); Negative CAD or Cancer
ED Past Surgical History: Gynecological (Tubal, ) and Orthopedic (FInger resection, Carpal tunnel); Negative Cardiac
Social History
Tobacco: Non-smoker
Alcohol: None
Drug: None
Personal:
Living: with family
Employment: Retired
Family History
Family History: Other
Phy Exam
<HECTOR Easton - Last Filed: 08/24/23 13:55>
General Physical Exam
General Presentation: no apparent distress
General age: appears stated age
General Skin: warm and dry
General Habitus: elderly
General Mental: anxious
General Hydration: appears well hydrated
Cardiovascular Exam
Cardiovascular Exam: regular rate/rhythm, no murmur and normal peripheral pulses
Pulmonary Exam
Pulmonary Exam: lungs clear and no respiratory distress
Neurological Exam
Neurological Exam: alert
Musculoskeletal Exam
Musculoskeletal Exam: full ROM
Skin Exam
Skin Exam: normal color and warm/dry
Psychiatric Exam
Psychiatric Exam: agitated and anxious
Course
<HECTOR Easton - Last Filed: 08/24/23 13:55>
Orders/Labs/Results
Orders:
Orders
08/24/23 11:40
Electrocardiogram (*1) Stat
Reason for Study: Abdominal Pain
Cardiac Monitoring- Treatment ONCE
EKG- Treatment ONCE
Urinalysis Reflex To Culture Urgent
08/24/23 11:41
IV Insert/Care/Rem.- Treatment PRN
08/24/23 11:54
Complete Blood Count/With Diff Urgent
Comprehensive Metabolic Panel Urgent
Abnormal Lab Results
08/24/23
11:54
WBC 11.8 H 10^3/uL
(4.8-10.8)
RBC 3.86 L 10^6/uL
(4.20-5.40)
Hct 34.2 L %
(37.0-47.0)
MCH 31.3 H pg
(27.0-31.0)
RDW 14.8 H %
(11.5-14.5)
Abs Immat Gran (auto) 0.1 H 10^3/uL
(0-0.05)
Absolute Neuts (auto) 8.9 H 10^3/uL
(1.4-6.5)
Absolute Monos (auto) 0.8 H 10^3/uL
(0.1-0.6)
Immature Gran % 0.8 H %
(0-0.5)
Neutrophils % 75.3 H %
(42.2-75.2)
Lymphocytes % 11.3 L %
(20.5-51.1)
Sodium 131 L mmol/L
(135-145)
Potassium 3.4 L mmol/L
(3.5-5.1)
Glucose 116 H mg/dl
(70-99)
AST 37 H U/L
(14-36)
ALT 71 H U/L
(0-35)
Alkaline Phosphatase 137 H U/L
(38-126)
08/24/23 11:54
08/24/23 11:54
Vital Signs
Initial and Last Documented VS:
Initial Vital Signs
Temp Pulse Resp BP Pulse Ox
97.7 F 103 18 165/89 98
08/24/23 10:24 08/24/23 10:24 08/24/23 10:24 08/24/23 10:24 08/24/23 10:24
Last Documented Vital Signs
Temp Pulse Resp BP Pulse Ox
97.7 F 80 22 187/91 99
08/24/23 10:24 08/24/23 13:30 08/24/23 13:30 08/24/23 13:00 08/24/23 13:30
Oil Developer consulted with Physician
Oil Developer consulted with physician?: Yes
Name of Physician Consulted: Luis Carlos
<Concetta Aldridge MD - Last Filed: 08/24/23 12:01>
Orders/Labs/Results
Orders:
Orders
08/24/23 11:40
Electrocardiogram (*1) Stat
Reason for Study: Abdominal Pain
Cardiac Monitoring- Treatment ONCE
EKG- Treatment ONCE
Urinalysis Reflex To Culture Urgent
08/24/23 11:41
IV Insert/Care/Rem.- Treatment PRN
08/24/23 11:54
Complete Blood Count/With Diff Urgent
Comprehensive Metabolic Panel Urgent
Abnormal Lab Results
08/24/23
11:54
WBC 11.8 H 10^3/uL
(4.8-10.8)
RBC 3.86 L 10^6/uL
(4.20-5.40)
Hct 34.2 L %
(37.0-47.0)
MCH 31.3 H pg
(27.0-31.0)
RDW 14.8 H %
(11.5-14.5)
Abs Immat Gran (auto) 0.1 H 10^3/uL
(0-0.05)
Absolute Neuts (auto) 8.9 H 10^3/uL
(1.4-6.5)
Absolute Monos (auto) 0.8 H 10^3/uL
(0.1-0.6)
Immature Gran % 0.8 H %
(0-0.5)
Neutrophils % 75.3 H %
(42.2-75.2)
Lymphocytes % 11.3 L %
(20.5-51.1)
Sodium 131 L mmol/L
(135-145)
Potassium 3.4 L mmol/L
(3.5-5.1)
Glucose 116 H mg/dl
(70-99)
AST 37 H U/L
(14-36)
ALT 71 H U/L
(0-35)
Alkaline Phosphatase 137 H U/L
(38-126)
08/24/23 11:54
08/24/23 11:54
Vital Signs
Initial and Last Documented VS:
Initial Vital Signs
Temp Pulse Resp BP Pulse Ox
97.7 F 103 18 165/89 98
08/24/23 10:24 08/24/23 10:24 08/24/23 10:24 08/24/23 10:24 08/24/23 10:24
Last Documented Vital Signs
Temp Pulse Resp BP Pulse Ox
97.7 F 80 22 187/91 99
08/24/23 10:24 08/24/23 13:30 08/24/23 13:30 08/24/23 13:00 08/24/23 13:30
<HECTOR Easton - Last Filed: 08/24/23 13:55>
MDM/Problems Addressed
Differential Diagnosis Includes:
not limited to: Acute psychological event, dehydration electrolyte normality
MDM/Problems Addressed:
None patient is a 78-year female who presents back to the ER very confused agitated. Patient was seen here August 18 for confusion hyponatremia. Patient was treated for hyponatremia she was here admitted. Patient was discharged home yesterday and
reports she was up all night very confused. Patient presents to the ER awake alert she stated that she feels delusional. Patient intermittently agitated restless. no fever on arrival wbc minimally elevated. Sodium is 131 was 135 on
discharge yesterday. LFTs minimally elevated (not new ) while patient was admitted, she did have a brain MRI which was negative for acute infarct or intracranial hemorrhage there is mild multilevel spinal cord compression syndrome, symptoms
cervical spine due to discogenic degenerative disease mild white matter leukoaraiosis in both frontal lobes and mild diffuse cerebral and cerebellar volume loss patient was seen by neurology.
Who had recommended the MRI and recommended possible neuropsychological evaluation if patient does not improve after her metabolic issues have resolved.
Patient will need readmission for continued workup on mental status changes which have worsened.
Chronic conditions affecting care:
recent hyponatremia
<HECTOR Eatson - Last Filed: 08/24/23 13:55>
*Pulse Oximetry
Patient hypoxic: no
*Critical Care Note
Total Time (30-74mins, 75-104mins- exclusive of procedures): Not Applicable
Data Reviewed
Review of Other/Old Records Reveals: Labs, Radiology Studies and Discharge Summary
Source: patient and spouse
<HECTOR Easton - Last Filed: 08/24/23 13:55>
Patient Management
Discussion with other providers: Hospitalist
ED Attending Note
<HECTOR Easton - Last Filed: 08/24/23 13:55>
-
Portions of this chart may have been created with voice recognition software.� Occasional wrong word or��sound alike� substitutions may have occurred due to the inherent limitations of voice recognition software.
<Concetta Aldridge MD - Last Filed: 08/24/23 12:01>
ED Attending Note
Patient seen and examined by attending physician: Yes
I performed the substantive portion of visit, reviewed & personally made and approve the management plan that is documented in note by myself or AILYN.: Yes
ED Attending Note:
Patient is alert and oriented x 3 on exam but appears agitated and paranoid. Patient appears delirious. says this has been intermittent for the last 3 weeks but prior to 3 weeks ago, she has never had anything like this. Patient will
likely need an oral consult, psychiatry, and a likely lumbar puncture
Discharge Plan
Departure
Patient Disposition: Admit
Date of Disposition: 08/24/23
Time of Disposition: 13:27
Admit to: Med/Surg
Admit to doctor: hospitalist
Presentation/result/management discussed w/ accepting MD/DO: Hospitalist
Patient with high blood pressure during this ER visit?: Yes
Condition: Fair
Covid-19: Not Applicable
Discharge Problem:
Altered mental status
Prescriptions:
No Action
cetirizine [Zyrtec] 10 mg Tablet
10 mg PO DAILY
atorvastatin 20 MG tablet
20 mg PO DAILY
oxybutynin chloride 15 mg Tablet Extended Release 24hr
15 mg PO DAILY
omeprazole 40 mg Capsule,Delayed Release(Dr/Ec)
40 mg PO DAILY
hydralazine 25 mg tablet
25 mg PO BID
levothyroxine 88 mcg tablet
88 mcg PO DAILY
valsartan 320 mg tablet
320 mg PO HS
Co Q-10 300 mg Capsule
300 mg PO DAILY
escitalopram oxalate 5 mg tablet
5 mg PO DAILY
cholecalciferol (vitamin D3) [Vitamin D3] 25 mcg (1,000 unit) Tablet
50 mcg PO DAILY
turmeric root extract 500 mg Tablet
1,000 mg PO DAILY
furosemide 20 mg Tablet
20 mg PO DAILY Qty: 30 0RF
Centrum Silver Women 8 mg iron-400 mcg-50 mcg Tablet
1 tab PO DAILY
Referrals:
UNKNOWN - PT DOES,NOT KNOW [Family Provider] -
Interventions
Interventions:
*Risk Screen - Suicide Last Done: 08/24/23 11:40
*General Assessment Last Done: 08/24/23 11:40
*Neglect/Abuse Screening Last Done: 08/24/23 11:40
*ED COVID-19 Vaccine History Last Done: 08/24/23 11:40
ED- Neurological Assessment Last Done: 08/24/23 11:52
[2023-08-24 12:15] LABS: % Basophils 0.8 % (0-2); % Eosinophils 4.8 % (0-6); % Immature Granulocytes 0.8 % (0-0.5); % Lymphocytes 11.3 % (20.5-51.1); % Neutrophils 75.3 % (42.2-75.2); Absolute Basophils 0.1 10^3/uL (0-0.2); Absolute Eosinophils 0.6 10^3/uL (0-0.7); Absolute Immature Granulocytes 0.1 10^3/uL (0-0.05); Absolute Lymphocytes 1.3 10^3/uL (1.2-3.4); Absolute Monocytes 0.8 10^3/uL (0.1-0.6); Absolute Neutrophils 8.9 10^3/uL (1.4-6.5); Hematocrit 34.2 % (37.0-47.0); Hemoglobin 12.1 g/dL (12.0-16.0); Mean Corp Hgb Conc. 35.4 g/dL (33.0-37.0); Mean Corpuscular Hgb 31.3 pg (27.0-31.0); Mean Corpuscular Volume 88.6 fL (81.0-99.0); Mean Platelet Volume 9.9 fL (7.4-10.4); Nucleated Red Blood Cells % 0 %; Platelet Count 338 10^3/uL (130-400); Red Blood Cell Count 3.86 10^6/uL (4.20-5.40); Red Cell Dist. Width 14.8 % (11.5-14.5); White Blood Cell Count 11.8 10^3/uL (4.8-10.8)
--- NOTE | 2023-08-24 12:18 | PHANOTE ---
08/24/2023, med rec tech, pt. and pt.'s spouse do not know pt.'s meds.; used discharge paperwork from 08/23/2023, [facility] records from 08/23/2023, and pharmacy fill data to compile list of pt.'s meds.
[2023-08-24 12:32] LABS: ALT (SGPT) 71 U/L (0-35); AST (SGOT) 37 U/L (14-36); Albumin 4.4 g/dl (3.5-5.0); Alkaline Phosphatase 137 U/L (38-126); Blood Urea Nitrogen 16 mg/dl (7-17); Calcium 9.8 mg/dl (8.4-10.2); Carbon Dioxide 23 mmol/L (22-30); Chloride 99 mmol/L (98-107); Estimated Creatinine Clearance 50 ml/min; Glucose 116 mg/dl (70-99); Potassium 3.4 mmol/L (3.5-5.1); Sodium 131 mmol/L (135-145); Total Bilirubin 0.9 mg/dl (0.2-1.3); Total Protein 7.4 g/dl (6.3-8.2); eGFR > 60.00
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
[2023-08-24] MEDS: SEROQUEL 12.5 MG PO ×2 (15:44→20:43)
[2023-08-24] MEDS: KCL 40 MEQ PO (15:44)
--- NOTE | 2023-08-24 15:51 | CS.PSYCHR ---
Consult Summary - Psychiatry
-
Pt is a 78 yo female with PMH for presented to us with confusion, restlessness. Pt was admitted 08/18 and was discharged 08/22 and reportedly did not eat or drink, overnight she was very anxious and did not sleep. reported patient seemed to
be more confused. Pt noted fearful to go home, concerned something bad will happen. Pt seen resting on stretcher, alert, continues to be mildly disoriented/ confused. Pt perseverating, reviewing the events yesterday and today. Pt appears
anxious. She states she stopped taking Lexapro 5 mg, although discharge note from 08/23/23 indicates it was continued. Pt aware she has had low Sodium. Sodium level was 131 on admission. QTc 436 on 08/23; was 491 on 08/18.
PMH: GERD, HTN, HLD, hypothyroidism, migraines, sleep apnea (uses CPAP), recent admission for intermittent confusion and malaise, hyponatremia, dx TME by Neurology
[facility] MRI on 08/19 showed mod diffuse volume loss primarily in temporal lobes, mild white matter ischemic dz in bilat frontal lobes
Psych Hx: denied. Pt states Lexapro was recently started, states she took it off and on, then stopped
SH: lives with in a town home
MSE: alert, slightly restless/agitated, partially oriented, cooperative. Speech coherent, somewhat perseverative. Pt c/o headache. Thought clear. No signs of psychosis. Insight appears limited
Imp: TME with mild agitation/anxiety
Rec: Agree with holding off Lexapro for now due to low Sodium. Agree with trying low dose of Seroquel 12.5 to 25 mg prn
could also manage with low-dose Ativan po or IV 0.5 mg prn, although this could increase confusion
will follow
[2023-08-24] MEDS: APRESOLINE 10 MG IV (16:55)
[2023-08-24 17:21] LABS: Urine Albumin Negative (Neg - Trace); Urine Bilirubin Negative (Negative); Urine Character Clear (Clear); Urine Color Yellow; Urine Glucose Negative (Negative); Urine Ketone Negative (Negative); Urine Leukocyte Trace (Negative); Urine Nitrite Negative (Negative); Urine Occult Blood Negative (Negative); Urine Urobilinogen Negative (Neg - 1+)
[2023-08-24 17:31] LABS: Urine Red Blood Cell None Seen /HPF (0-2); Urine Squamous Cell >30 /LPF (Few)
[2023-08-24 17:35] LABS: COVID-19 Antigen Negative (Negative)
[2023-08-24] MEDS: APRESOLINE 25 MG PO (20:42)
[2023-08-24] MEDS: LOVENOX 40 MG SC (20:42)
[2023-08-24] MEDS: MOTRIN 400 MG PO (22:31)
[2023-08-24] MEDS: DIOVAN PO (22:34)
[2023-08-25] MEDS: SYNTHROID 88 MCG PO (05:33)
[2023-08-25 07:30] VITALS: BP 143/92
[2023-08-25 07:37] LABS: Hematocrit 32.7 % (37.0-47.0); Hemoglobin 11.4 g/dL (12.0-16.0); Mean Corp Hgb Conc. 34.9 g/dL (33.0-37.0); Mean Corpuscular Hgb 31.4 pg (27.0-31.0); Mean Corpuscular Volume 90.1 fL (81.0-99.0); Mean Platelet Volume 10.2 fL (7.4-10.4); Platelet Count 286 10^3/uL (130-400); Red Blood Cell Count 3.63 10^6/uL (4.20-5.40); Red Cell Dist. Width 15.1 % (11.5-14.5); White Blood Cell Count 15.7 10^3/uL (4.8-10.8)
[2023-08-25 08:00] LABS: ALT (SGPT) 58 U/L (0-35); AST (SGOT) 36 U/L (14-36); Albumin 3.6 g/dl (3.5-5.0); Alkaline Phosphatase 109 U/L (38-126); Blood Urea Nitrogen 19 mg/dl (7-17); Calcium 9.7 mg/dl (8.4-10.2); Carbon Dioxide 25 mmol/L (22-30); Chloride 99 mmol/L (98-107); Estimated Creatinine Clearance 44 ml/min; Glucose 124 mg/dl (70-99); Potassium 3.9 mmol/L (3.5-5.1); Sodium 134 mmol/L (135-145); Total Bilirubin 0.7 mg/dl (0.2-1.3); Total Protein 6.5 g/dl (6.3-8.2); eGFR > 60.00
[2023-08-25] MEDS: APRESOLINE 25 MG PO ×2 (08:52→20:42)
[2023-08-25] MEDS: LASIX 20 MG PO (08:52)
[2023-08-25] MEDS: DITROPAN 5 MG PO ×3 (08:53→20:42)
[2023-08-25] MEDS: SEROQUEL 12.5 MG PO ×2 (08:53→20:41)
[2023-08-25] MEDS: LIPITOR 20 MG PO (08:53)
[2023-08-25] MEDS: PROTONIX 40 MG PO (08:53)
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
--- NOTE | 2023-08-25 12:20 | W.PN.UPDATE ---
Update Note
Progress Note Update
patient seen chart reviewed. discussed w nursing. family and d at bedside. from my read of the chart i did not expect patient to look as good as she did today. she was very pleasant. she was sitting up in bed eating lunch. she was not at all
paranoid and she was attentive to discussion at hand. we talked about the paranoia she exhibited yesterday . she denied any concerns which she had expressed yesterday. d reports she gets paranoid more in the am than the evening which is relatively
unusual. the family is very fearful however that today is too soon for dc as they worry she will decompensate again as she did last dc. would continue meds as they are for now. hopefully she can stay another overnight to see if she maintains
improvement. will check in tomorrow
[2023-08-25 15:00] VITALS: BP 144/73
--- NOTE | 2023-08-25 15:15 | CM ---
Patient seen bedside, initial assessment completed. Patient reports she lives with her in a one story home, two steps to enter through the garage with railings on either side. Patient reports her daughter from [place] is visiting for a
month. Patient denies VN or SNF. Patient reports she does have a CPAP machine through [employer] that she wears due to snoring, reports she does not have sleep apnea. Patient confirms PCP Dr. Omar Escalante, pharmacy [facility] in [place]. CM
will continue to follow for discharge planning needs, will watch for PT/OT evaluations.
Plan; home no needs vs VN.
[2023-08-25] MEDS: LOVENOX 40 MG SC (17:30)
[2023-08-25] MEDS: DIOVAN 320 MG PO (20:42)
[2023-08-25] MEDS: TYLENOL 650 MG PO (22:57)
[2023-08-25 23:32] VITALS: BP 123/65
[2023-08-26] MEDS: SYNTHROID 88 MCG PO (05:24)
[2023-08-26 07:30] VITALS: BP 145/81
[2023-08-26 08:02] LABS: Hematocrit 33.6 % (37.0-47.0); Hemoglobin 11.3 g/dL (12.0-16.0); Mean Corp Hgb Conc. 33.6 g/dL (33.0-37.0); Mean Corpuscular Hgb 31.1 pg (27.0-31.0); Mean Corpuscular Volume 92.6 fL (81.0-99.0); Mean Platelet Volume 10.5 fL (7.4-10.4); Platelet Count 299 10^3/uL (130-400); Red Blood Cell Count 3.63 10^6/uL (4.20-5.40); Red Cell Dist. Width 15.1 % (11.5-14.5); White Blood Cell Count 8.2 10^3/uL (4.8-10.8)
[2023-08-26] MEDS: LASIX 20 MG PO (08:04)
[2023-08-26] MEDS: APRESOLINE 25 MG PO (08:04)
[2023-08-26] MEDS: SEROQUEL 12.5 MG PO (08:05)
[2023-08-26] MEDS: DITROPAN 5 MG PO (08:05)
[2023-08-26] MEDS: PROTONIX 40 MG PO (08:05)
[2023-08-26] MEDS: LIPITOR 20 MG PO (08:05)
[2023-08-26 08:27] LABS: ALT (SGPT) 51 U/L (0-35); AST (SGOT) 35 U/L (14-36); Albumin 3.8 g/dl (3.5-5.0); Alkaline Phosphatase 103 U/L (38-126); Blood Urea Nitrogen 19 mg/dl (7-17); Calcium 9.6 mg/dl (8.4-10.2); Carbon Dioxide 24 mmol/L (22-30); Chloride 101 mmol/L (98-107); Direct Bilirubin 0.1 mg/dl (0.0-0.4); Estimated Creatinine Clearance 44 ml/min; Glucose 111 mg/dl (70-99); Potassium 3.9 mmol/L (3.5-5.1); Sodium 132 mmol/L (135-145); Total Bilirubin 0.6 mg/dl (0.2-1.3); Total Protein 6.7 g/dl (6.3-8.2); eGFR > 60.00
--- NOTE | 2023-08-26 09:57 | CM ---
Addendum entered by Jennifer Street 08/26/23 16:16:
IMM completed and signed form placed on chart.
Original Note:
Patient seen at bedside, Patient plan home with family and no needs. CM reviewed plan with physician. CM will continue to follow for discharge planning needs.
Plan; home with no needs anticipated
--- NOTE | 2023-08-26 12:51 | W.PN.UPDATE ---
Update Note
Progress Note Update
Patient seems to be at her baseline although may have some continued denial over the issues that brought her here and according to patient's daughter on speaking to her today may be 'fronting' just so she can get out back to home. See no apparent
delusional activity or thought pattern presently and see no reason why she cannot be discharged later today after being seen by psychiatry who requested her to stay overnight for further observation. Plan will be listed as a change from psychiatry
and Seroquel 12.5 mg twice a day reiterated the need for daughter to to be aware that to stop patient's Lexapro going forward to continue to attempt a fluid restriction for which she states she should have no issue with this does not believe she
drinks copious amounts of water. Agreed to follow-up with psychiatry
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
--- NOTE | 2023-08-26 14:37 | W.PN.UPDATE ---
Update Note
Progress Note Update
patient seen chart reviewed. spoke with nursing. spoke christina patton by telephone. the patient feels a bit tired this am. i asked her about her paranoid thoughts and there is still some residual paranoia although she is able to talk herself out of it at this
point. she does have appointment w amber russell for september 28 at [facility] and they are on the cancellation list to be seen earlier. she can be dc today. since she is a bit tired with seroquel will move all to hs starting tomorrow. she already received
12.5 mg this am so should take 12.5 mg q hs today only . if she feels hungover with the 25 mg at hs can resume 12.5 mg bid if that is more comfortable. gave her crisis number to call and ask them to call me if she has medication questions re
seroquel. she is in good spirits and eager to be out of hospital but says 'it's nice to be taken care of sometimes...'
[2023-08-26 15:56] VITALS: BP 137/76
== END 2023-08-26 16:42 | disposition home or self-care (01) | DRG 92 ==
LOC: 4 WEST ACU 14:48
PROVIDERS: Nurse Practitioner; Registered Nurse; ADMITTING PHYSICIAN Hospitalist; ATTENDING PHYSICIAN Internal Medicine; CONSULT PHYSICIAN Psychiatry & Neurology Psychiatry; EMERGENCY PHYSICIAN Emergency Medicine; FAMILY PHYSICIAN Family Medicine
DX: G92.8 Other toxic encephalopathy (principal); E22.2 Syndrome of inappropriate secretion of antidiuretic hormone; I16.0 Hypertensive urgency; I10 Essential (primary) hypertension; E87.6 Hypokalemia; E78.00 Pure hypercholesterolemia, unspecified; G47.30 Sleep apnea, unspecified; F22 Delusional disorders; E03.9 Hypothyroidism, unspecified
CPT/HCPCS: 80053; 81003; 81015; 82248; 85025; 85027; 87811; 93005; 99285

== ENCOUNTER → 2023-09-01 11:11 | Outpatient (REF) | payer MEDICARE, BC, SELFPAY ==
[2023-09-01 16:26] LABS: Blood Urea Nitrogen 24 mg/dl (7-17); Calcium 10.5 mg/dl (8.4-10.2); Carbon Dioxide 25 mmol/L (22-30); Chloride 97 mmol/L (98-107); Glucose 117 mg/dl (70-99); Potassium 4.5 mmol/L (3.5-5.1); Sodium 134 mmol/L (135-145); eGFR > 60.00
[2023-09-01 16:54] LABS: TSH 8.76 uIU/ml (0.47-4.68)
== END ==
LOC: HWLAB 11:11
PROVIDERS: ATTENDING PHYSICIAN Nurse Practitioner
DX: E87.1 Hypo-osmolality and hyponatremia (principal); E87.6 Hypokalemia; E03.9 Hypothyroidism, unspecified; R41.82 Altered mental status, unspecified
CPT/HCPCS: 36415; 80048; 84443

== ENCOUNTER → 2023-10-13 08:10 | Outpatient (REF) | payer MEDICARE, BC, SELFPAY ==
[2023-10-13 10:49] LABS: Urine Albumin Negative (Neg - Trace); Urine Bilirubin Negative (Negative); Urine Character Clear (Clear); Urine Color Yellow; Urine Glucose Negative (Negative); Urine Ketone Negative (Negative); Urine Leukocyte Trace (Negative); Urine Nitrite Negative (Negative); Urine Occult Blood Negative (Negative); Urine Urobilinogen Negative (Neg - 1+)
[2023-10-13 11:02] LABS: Urine Squamous Cell >30 /LPF (Few); Urine Urothelial Cell 0-2 /LPF (FEW)
[2023-10-13 11:03] LABS: Urine White Cell 0-2 /HPF (0-5)
[2023-10-13 11:05] LABS: Urine Bacteria Few (Negative); Urine Red Blood Cell 0-2 /HPF (0-2)
[2023-10-13 11:07] LABS: ALT (SGPT) 27 U/L (0-35); AST (SGOT) 28 U/L (14-36); Albumin 4.1 g/dl (3.5-5.0); Alkaline Phosphatase 64 U/L (38-126); Blood Urea Nitrogen 21 mg/dl (7-17); Calcium 10.1 mg/dl (8.4-10.2); Carbon Dioxide 26 mmol/L (22-30); Chloride 103 mmol/L (98-107); Glucose 107 mg/dl (70-99); HDL Cholesterol 79 mg/dl; LDL Cholesterol, Calculated 75 mg/dl; Potassium 4.8 mmol/L (3.5-5.1); Sodium 135 mmol/L (135-145); Total Bilirubin 0.4 mg/dl (0.2-1.3); Total Cholesterol 177 mg/dl (50-199); Total Protein 6.9 g/dl (6.3-8.2); Triglyceride 115 mg/dl (10-149); Very Low Density Lipoprotein 23 mg/dl (0-30); eGFR > 60.00
[2023-10-13 11:12] LABS: Free T3 3.39 pg/ml (2.77-5.27)
[2023-10-13 11:37] LABS: TSH 6.44 uIU/ml (0.47-4.68)
[2023-10-13 11:44] LABS: Microalbumin, Random Urine <0.6 mg/dl (0.6-1.7)
[2023-10-13 13:55] LABS: Glycohemoglobin (HgbA1c) 5.5 % (4.0-5.6)
[2023-10-14 18:52] LABS: Thyroglobulin Antibodies <0.9 IU/mL (0.0-4.0); Thyroid Peroxidase Ab (TPO) 207.4 IU/mL (0.0-9.0)
== END ==
LOC: HWLAB 08:10
PROVIDERS: ATTENDING PHYSICIAN Nurse Practitioner
DX: E78.2 Mixed hyperlipidemia (principal); R73.03 Prediabetes; E03.9 Hypothyroidism, unspecified; E83.52 Hypercalcemia; R82.90 Unspecified abnormal findings in urine
CPT/HCPCS: 36415; 80053; 80061; 81003; 81015; 82043; 82570; 83036; 84439; 84443; 84481; 86376; 86800

== ENCOUNTER → 2023-10-20 11:49 | Outpatient (REF) | payer MEDICARE, BC, SELFPAY | LOC: HWLAB 11:49 | PROVIDERS: ATTENDING PHYSICIAN Nurse Practitioner | DX: R82.90 Unspecified abnormal findings in urine (principal) | CPT/HCPCS: 87086 ==

== ENCOUNTER → 2023-11-03 12:35 | Outpatient (REF) | payer MEDICARE, BC, SELFPAY | LOC: HWRAD 12:35 | PROVIDERS: ATTENDING PHYSICIAN Nurse Practitioner | DX: M85.80 Other specified disorders of bone density and structure, unspecified site (principal); M81.0 Age-related osteoporosis without current pathological fracture | CPT/HCPCS: 77080 ==

== ENCOUNTER → 2023-12-14 08:31 | Outpatient (REF) | payer MEDICARE, BC, SELFPAY ==
[2023-12-14 12:10] LABS: Potassium 4.9 mmol/L (3.5-5.1); Sodium 136 mmol/L (135-145)
[2023-12-14 12:45] LABS: TSH 0.97 uIU/ml (0.47-4.68)
== END ==
LOC: HWLAB 08:31
PROVIDERS: ATTENDING PHYSICIAN Nurse Practitioner; REFERRING PHYSICIAN Psychiatry & Neurology Psychiatry
DX: R82.90 Unspecified abnormal findings in urine (principal); E03.9 Hypothyroidism, unspecified; E87.1 Hypo-osmolality and hyponatremia; E87.6 Hypokalemia
CPT/HCPCS: 36415; 84132; 84295; 84443; 87086

== ENCOUNTER → 2023-12-16 12:08 | Outpatient (REF) | payer MEDICARE, BC, SELFPAY | LOC: HWWDC 12:08 | PROVIDERS: ATTENDING PHYSICIAN Nurse Practitioner | DX: Z12.31 Encounter for screening mammogram for malignant neoplasm of breast (principal) | CPT/HCPCS: 77063; 77067 ==

== ENCOUNTER → 2024-01-18 08:59 | Outpatient (REF) | payer MEDICARE, BC, SELFPAY ==
[2024-01-18 12:05] LABS: % Basophils 0.8 % (0-2); % Eosinophils 4.6 % (0-6); % Immature Granulocytes 0.3 % (0-0.5); % Lymphocytes 20.3 % (20.5-51.1); Absolute Basophils 0.1 10^3/uL (0-0.2); Absolute Eosinophils 0.4 10^3/uL (0-0.7); Absolute Lymphocytes 1.5 10^3/uL (1.2-3.4); Absolute Monocytes 0.6 10^3/uL (0.1-0.6); Hematocrit 37.1 % (37.0-47.0); Hemoglobin 12.2 g/dL (12.0-16.0); Mean Corp Hgb Conc. 32.9 g/dL (33.0-37.0); Mean Corpuscular Hgb 29.2 pg (27.0-31.0); Mean Corpuscular Volume 88.8 fL (81.0-99.0); Mean Platelet Volume 11.4 fL (7.4-10.4); Nucleated Red Blood Cells % 0 %; Platelet Count 229 10^3/uL (130-400); Red Blood Cell Count 4.18 10^6/uL (4.20-5.40); Red Cell Dist. Width 14.6 % (11.5-14.5); White Blood Cell Count 7.6 10^3/uL (4.8-10.8)
[2024-01-18 12:07] LABS: Urine Albumin Negative (Neg - Trace); Urine Bilirubin Negative (Negative); Urine Character Clear (Clear); Urine Color Yellow; Urine Glucose Negative (Negative); Urine Ketone Negative (Negative); Urine Leukocyte Negative (Negative); Urine Nitrite Negative (Negative); Urine Occult Blood Negative (Negative); Urine Urobilinogen Negative (Neg - 1+); Urine pH 6.5 (5.0-9.0)
[2024-01-18 12:13] LABS: ALT (SGPT) 29 U/L (0-35); AST (SGOT) 37 U/L (14-36); Albumin 4.6 g/dl (3.5-5.0); Alkaline Phosphatase 75 U/L (38-126); Blood Urea Nitrogen 21 mg/dl (7-17); Calcium 10.2 mg/dl (8.4-10.2); Carbon Dioxide 26 mmol/L (22-30); Chloride 102 mmol/L (98-107); Glucose 110 mg/dl (70-99); HDL Cholesterol 94 mg/dl; LDL Cholesterol, Calculated 64 mg/dl; Potassium 4.5 mmol/L (3.5-5.1); Sodium 135 mmol/L (135-145); Total Bilirubin 0.6 mg/dl (0.2-1.3); Total Cholesterol 176 mg/dl (50-199); Total Protein 7.5 g/dl (6.3-8.2); Triglyceride 92 mg/dl (10-149); Very Low Density Lipoprotein 18 mg/dl (0-30); eGFR > 60.00
[2024-01-18 12:39] LABS: Glycohemoglobin (HgbA1c) 5.8 % (4.0-5.6)
[2024-01-18 12:41] LABS: TSH 2.65 uIU/ml (0.47-4.68)
== END ==
LOC: HWLAB 08:59
PROVIDERS: ATTENDING PHYSICIAN Nurse Practitioner
DX: E03.9 Hypothyroidism, unspecified (principal); E78.2 Mixed hyperlipidemia; R73.03 Prediabetes
CPT/HCPCS: 36415; 80053; 80061; 81003; 83036; 84443; 85025

== ENCOUNTER → 2024-02-09 08:47 | Outpatient (REF) | payer MEDICARE, BC, SELFPAY ==
[2024-02-09 13:10] LABS: Blood Urea Nitrogen 28 mg/dl (7-17); Calcium 10.3 mg/dl (8.4-10.2); Carbon Dioxide 24 mmol/L (22-30); Chloride 98 mmol/L (98-107); Glucose 123 mg/dl (70-99); Potassium 4.1 mmol/L (3.5-5.1); Sodium 140 mmol/L (135-145); eGFR 58.02
== END ==
LOC: HWLAB 08:47
PROVIDERS: ATTENDING PHYSICIAN Nurse Practitioner; OTHER PHYSICIAN Specialist; REFERRING PHYSICIAN Nurse Practitioner Adult Health
DX: I10 Essential (primary) hypertension (principal)
CPT/HCPCS: 36415; 80048

== ENCOUNTER → 2024-03-29 08:21 | Outpatient (REF) | payer MEDICARE, BC, SELFPAY ==
[2024-03-29 10:04] LABS: Osmolality Urine 342 mOsm/kg (300-900)
[2024-03-29 10:45] LABS: Blood Urea Nitrogen 21 mg/dl (7-17); Calcium 10.3 mg/dl (8.4-10.2); Carbon Dioxide 25 mmol/L (22-30); Chloride 99 mmol/L (98-107); Glucose 128 mg/dl (70-99); Potassium 4.1 mmol/L (3.5-5.1); Sodium 140 mmol/L (135-145); eGFR 51.75
[2024-03-29 11:17] LABS: Cortisol, Random 18.2 ug/dl
[2024-03-29 11:56] LABS: TSH 3.21 uIU/ml (0.47-4.68)
[2024-03-29 13:21] LABS: Uric Acid 5.6 mg/dl (2.5-6.2)
== END ==
LOC: HWLAB 08:21
PROVIDERS: ATTENDING PHYSICIAN Specialist; FAMILY PHYSICIAN Nurse Practitioner; OTHER PHYSICIAN Nurse Practitioner Adult Health; OTHER PHYSICIAN Psychiatry & Neurology Neurology; REFERRING PHYSICIAN Internal Medicine Endocrinology, Diabetes & Metabolism
DX: E87.1 Hypo-osmolality and hyponatremia (principal); E03.9 Hypothyroidism, unspecified
CPT/HCPCS: 36415; 80048; 82533; 83935; 84443; 84550

== ENCOUNTER → 2024-04-12 07:35 | Outpatient (REF) | payer MEDICARE, BC, SELFPAY ==
[2024-04-12 09:46] LABS: Blood Urea Nitrogen 24 mg/dl (7-17); Calcium 10.1 mg/dl (8.4-10.2); Carbon Dioxide 26 mmol/L (22-30); Chloride 98 mmol/L (98-107); Glucose 114 mg/dl (70-99); Potassium 4.2 mmol/L (3.5-5.1); Sodium 137 mmol/L (135-145); eGFR > 60.00
== END ==
LOC: HWLAB 07:35
PROVIDERS: ATTENDING PHYSICIAN Specialist; FAMILY PHYSICIAN Nurse Practitioner Adult Health; REFERRING PHYSICIAN Psychiatry & Neurology Neurology
DX: E87.1 Hypo-osmolality and hyponatremia (principal); I10 Essential (primary) hypertension; E87.6 Hypokalemia
CPT/HCPCS: 36415; 80048

== ENCOUNTER → 2024-06-16 09:05 | Outpatient (REF) | payer MEDICARE, BC, SELFPAY ==
[2024-06-16 12:44] LABS: ALT (SGPT) 23 U/L (0-35); AST (SGOT) 26 U/L (14-36); Albumin 4.5 g/dl (3.5-5.0); Alkaline Phosphatase 78 U/L (38-126); Blood Urea Nitrogen 19 mg/dl (7-17); Calcium 9.6 mg/dl (8.4-10.2); Carbon Dioxide 28 mmol/L (22-30); Chloride 102 mmol/L (98-107); Glucose 115 mg/dl (70-99); HDL Cholesterol 88 mg/dl; LDL Cholesterol, Calculated 84 mg/dl; Potassium 4.2 mmol/L (3.5-5.1); Sodium 138 mmol/L (135-145); Total Bilirubin 0.6 mg/dl (0.2-1.3); Total Cholesterol 196 mg/dl (50-199); Total Protein 7.2 g/dl (6.3-8.2); Triglyceride 122 mg/dl (10-149); Very Low Density Lipoprotein 24 mg/dl (0-30); eGFR > 60.00
[2024-06-16 12:59] LABS: Glycohemoglobin (HgbA1c) 5.6 % (4.0-5.6)
[2024-06-16 13:00] LABS: Vitamin D, 25-OH*** 36.7 ng/mL (30-80)
[2024-06-16 13:14] LABS: TSH 3.94 uIU/ml (0.47-4.68)
[2024-06-16 13:50] LABS: Folate 6.8 ng/ml (2.76-20)
[2024-06-16 14:33] LABS: Urine Albumin Negative (Neg - Trace); Urine Bilirubin Negative (Negative); Urine Character Clear (Clear); Urine Color Yellow; Urine Glucose Negative (Negative); Urine Ketone Negative (Negative); Urine Leukocyte 1+ (Negative); Urine Nitrite Negative (Negative); Urine Occult Blood Negative (Negative); Urine Urobilinogen Negative (Neg - 1+)
[2024-06-16 14:49] LABS: Vitamin B12 638 pg/ml (239-931)
[2024-06-16 14:54] LABS: Urine Bacteria Few (Negative); Urine Red Blood Cell 0-2 /HPF (0-2); Urine Squamous Cell >30 /LPF (Few)
[2024-06-16 16:37] LABS: Syphilis/T. pallidum Ab Reflex Negative (Negative)
[2024-06-17 15:55] LABS: Thyroglobulin Antibodies <0.9 IU/mL (0.0-4.0); Thyroid Peroxidase Ab (TPO) 259.7 IU/mL (0.0-9.0)
== END ==
LOC: HWLAB 09:05
PROVIDERS: ATTENDING PHYSICIAN Internal Medicine Endocrinology, Diabetes & Metabolism; FAMILY PHYSICIAN Nurse Practitioner Adult Health; REFERRING PHYSICIAN Specialist
DX: E87.1 Hypo-osmolality and hyponatremia (principal); E06.3 Autoimmune thyroiditis; E78.2 Mixed hyperlipidemia; R73.03 Prediabetes; M85.80 Other specified disorders of bone density and structure, unspecified site; I10 Essential (primary) hypertension; R41.3 Other amnesia
CPT/HCPCS: 36415; 80053; 80061; 81003; 81015; 82306; 82607; 82746; 83036; 84443; 86376; 86780; 86800; 87086

== ENCOUNTER → 2024-07-03 11:25 | Outpatient (REF) | payer MEDICARE, BC, SELFPAY | LOC: HWRAD 11:25 | PROVIDERS: ATTENDING PHYSICIAN Nurse Practitioner Adult Health | DX: Z86.73 Personal history of transient ischemic attack (TIA), and cerebral infarction without residual deficits (principal); I67.2 Cerebral atherosclerosis | CPT/HCPCS: 93880 ==

== ENCOUNTER → 2024-08-16 09:48 | Outpatient (REF) | payer MEDICARE, BC, SELFPAY ==
[2024-08-16 13:07] LABS: ALT (SGPT) 28 U/L (0-35); AST (SGOT) 29 U/L (14-36); Albumin 4.5 g/dl (3.5-5.0); Alkaline Phosphatase 87 U/L (38-126); Direct Bilirubin 0.4 mg/dl (0.0-0.4); HDL Cholesterol 89 mg/dl; LDL Cholesterol, Calculated 76 mg/dl; Total Bilirubin 0.7 mg/dl (0.2-1.3); Total Cholesterol 193 mg/dl (50-199); Total Protein 7.7 g/dl (6.3-8.2); Triglyceride 141 mg/dl (10-149); Very Low Density Lipoprotein 28 mg/dl (0-30)
[2024-08-16 13:26] LABS: Urine Albumin Negative (Neg - Trace); Urine Bilirubin Negative (Negative); Urine Character Clear (Clear); Urine Glucose Negative (Negative); Urine Ketone Negative (Negative); Urine Leukocyte Negative (Negative); Urine Nitrite Negative (Negative); Urine Occult Blood Negative (Negative); Urine Urobilinogen Negative (Neg - 1+)
[2024-08-16 13:45] LABS: Urine Color Straw
[2024-08-17 16:45] LABS: Blood Urea Nitrogen 25 mg/dl (7-17); Calcium 10.8 mg/dl (8.4-10.2); Carbon Dioxide 25 mmol/L (22-30); Chloride 99 mmol/L (98-107); Glucose 114 mg/dl (70-99); Potassium 4.1 mmol/L (3.5-5.1); Sodium 138 mmol/L (135-145); eGFR 57.66
== END ==
LOC: HWLAB 09:48
PROVIDERS: ATTENDING PHYSICIAN Nurse Practitioner Adult Health; OTHER PHYSICIAN Psychiatry & Neurology Neurology; REFERRING PHYSICIAN Specialist
DX: Z86.73 Personal history of transient ischemic attack (TIA), and cerebral infarction without residual deficits (principal); E78.2 Mixed hyperlipidemia; F30.9 Manic episode, unspecified
CPT/HCPCS: 36415; 80053; 80061; 80076; 81003; 82248

== ENCOUNTER → 2024-08-25 08:22 | Outpatient (REF) | payer MEDICARE, BC, SELFPAY ==
[2024-08-25 10:19] LABS: % Basophils 0.2 % (0-2); % Eosinophils 7.5 % (0-6); % Immature Granulocytes 0.3 % (0-0.5); % Lymphocytes 30.5 % (20.5-51.1); % Monocytes 6.8 % (1.7-9.3); % Neutrophils 54.7 % (42.2-75.2); Absolute Eosinophils 0.5 10^3/uL (0-0.7); Absolute Lymphocytes 1.9 10^3/uL (1.2-3.4); Absolute Monocytes 0.4 10^3/uL (0.1-0.6); Absolute Neutrophils 3.4 10^3/uL (1.4-6.5); Hematocrit 37.3 % (37.0-47.0); Hemoglobin 12.3 g/dL (12.0-16.0); Mean Corpuscular Hgb 29.9 pg (27.0-31.0); Mean Corpuscular Volume 90.5 fL (81.0-99.0); Mean Platelet Volume 11.3 fL (7.4-10.4); Nucleated Red Blood Cells % 0 %; Platelet Count 228 10^3/uL (130-400); Red Blood Cell Count 4.12 10^6/uL (4.20-5.40); Red Cell Dist. Width 13.8 % (11.5-14.5); White Blood Cell Count 6.2 10^3/uL (4.8-10.8)
[2024-08-25 11:31] LABS: Glycohemoglobin (HgbA1c) 5.7 % (4.0-5.6)
[2024-08-25 12:35] LABS: ALT (SGPT) 24 U/L (0-35); AST (SGOT) 27 U/L (14-36); Albumin 4.2 g/dl (3.5-5.0); Alkaline Phosphatase 85 U/L (38-126); Calcium 9.9 mg/dl (8.4-10.2); Direct Bilirubin 0.3 mg/dl (0.0-0.4); HDL Cholesterol 83 mg/dl; LDL Cholesterol, Calculated 67 mg/dl; Total Bilirubin 0.6 mg/dl (0.2-1.3); Total Cholesterol 180 mg/dl (50-199); Total Protein 7.1 g/dl (6.3-8.2); Triglyceride 151 mg/dl (10-149); Very Low Density Lipoprotein 30 mg/dl (0-30)
[2024-08-25 12:59] LABS: Vitamin D, 25-OH*** 32.7 ng/mL (30-80)
[2024-08-25 13:49] LABS: Folate 6.1 ng/ml (2.76-20); Vitamin B12 636 pg/ml (239-931)
[2024-08-26 13:12] LABS: Intact PTH 74.6 pg/ml (13.6-85.8)
== END ==
LOC: HWLAB 08:22
PROVIDERS: ATTENDING PHYSICIAN Nurse Practitioner Adult Health; OTHER PHYSICIAN Psychiatry & Neurology Neurology; REFERRING PHYSICIAN Specialist
DX: Z86.73 Personal history of transient ischemic attack (TIA), and cerebral infarction without residual deficits (principal); E78.2 Mixed hyperlipidemia; E83.52 Hypercalcemia; E03.9 Hypothyroidism, unspecified; R73.03 Prediabetes; M85.80 Other specified disorders of bone density and structure, unspecified site; I10 Essential (primary) hypertension; R41.3 Other amnesia
CPT/HCPCS: 36415; 80061; 80076; 82306; 82607; 82746; 83036; 83970; 85025; 86780

== ENCOUNTER → 2024-12-06 09:12 | Outpatient (REF) | payer MEDICARE, BC, SELFPAY ==
[2024-12-06 13:12] LABS: TSH 4.78 uIU/ml (0.47-4.68)
== END ==
LOC: HWLAB 09:12
PROVIDERS: ATTENDING PHYSICIAN Internal Medicine Endocrinology, Diabetes & Metabolism; FAMILY PHYSICIAN Nurse Practitioner Adult Health
DX: E06.3 Autoimmune thyroiditis (principal)
CPT/HCPCS: 36415; 84443

== ENCOUNTER → 2024-12-18 12:20 | Outpatient (REF) | payer MEDICARE, BC, SELFPAY | LOC: HWWDC 12:20 | PROVIDERS: ATTENDING PHYSICIAN Nurse Practitioner Adult Health | DX: Z12.31 Encounter for screening mammogram for malignant neoplasm of breast (principal) | CPT/HCPCS: 77063; 77067 ==

== ENCOUNTER → 2025-01-23 08:34 | Outpatient (REF) | payer MEDICARE, BC, SELFPAY ==
[2025-01-23 11:49] LABS: ALT (SGPT) 28 U/L (0-35)
[2025-01-23 11:50] LABS: AST (SGOT) 29 U/L (14-36); Albumin 4.9 g/dl (3.5-5.0); Alkaline Phosphatase 85 U/L (38-126); Blood Urea Nitrogen 22 mg/dl (7-17); Calcium 10.6 mg/dl (8.4-10.2); Carbon Dioxide 27 mmol/L (22-30); Chloride 103 mmol/L (98-107); Glucose 127 mg/dl (70-99); Glycohemoglobin (HgbA1c) 5.8 % (4.0-5.6); HDL Cholesterol 90 mg/dl; LDL Cholesterol, Calculated 84 mg/dl; Potassium 4.2 mmol/L (3.5-5.1); Sodium 139 mmol/L (135-145); Total Protein 8.0 g/dl (6.3-8.2); Very Low Density Lipoprotein 29 mg/dl (0-30); eGFR 51.43
== END ==
LOC: HWLAB 08:34
PROVIDERS: ATTENDING PHYSICIAN Nurse Practitioner Adult Health
DX: E03.9 Hypothyroidism, unspecified (principal); E78.2 Mixed hyperlipidemia; R73.03 Prediabetes
CPT/HCPCS: 36415; 80053; 80061; 83036; 84439; 84443

== ENCOUNTER → 2025-03-12 09:10 | Outpatient (REF) | payer MEDICARE, BC, SELFPAY ==
[2025-03-12 13:09] LABS: ALT (SGPT) 27 U/L (0-35); AST (SGOT) 28 U/L (14-36); Albumin 4.7 g/dl (3.5-5.0); Alkaline Phosphatase 88 U/L (38-126); Blood Urea Nitrogen 22 mg/dl (7-17); Calcium 10.0 mg/dl (8.4-10.2); Carbon Dioxide 26 mmol/L (22-30); Chloride 105 mmol/L (98-107); Glucose 119 mg/dl (70-99); HDL Cholesterol 85 mg/dl; LDL Cholesterol, Calculated 83 mg/dl; Potassium 4.4 mmol/L (3.5-5.1); Sodium 139 mmol/L (135-145); Total Protein 7.7 g/dl (6.3-8.2); Very Low Density Lipoprotein 34 mg/dl (0-30); eGFR 57.66
[2025-03-12 13:13] LABS: Glycohemoglobin (HgbA1c) 5.7 % (4.0-5.6)
== END ==
LOC: HWLAB 09:10
PROVIDERS: ATTENDING PHYSICIAN Nurse Practitioner Adult Health
DX: E03.9 Hypothyroidism, unspecified (principal); E78.2 Mixed hyperlipidemia; R73.03 Prediabetes
CPT/HCPCS: 36415; 80053; 80061; 83036; 83970; 84439; 84443